=== PATIENT | female | born 1985 | race Caucasian/White ===

== ENCOUNTER 2019-04-03 19:27 | Observation (INO) | payer BC ==
[2019-04-03] MEDS ORDERED: Famotidine 20 MG/2 ML SDV IVPUSH ONE (19:32)
--- NOTE | 2019-04-03 19:32 | EDM.PDOC ---
ED HPI GENERAL MEDICAL PROBLEM - General Chief Complaint: Headache Stated Complaint: Headache Lethargy Time Seen by Provider: 04/03/19 19:27 Source of Information: Reports: Patient, EMS, Family (Mother and sister, Nay) , Old Records ([facility] EMR. No paper hospital chart available.). Denies: EMS Notes Reviewed (Not available at time of dictation) History Limitations: Reports: Altered Mental Status - History of Present Illness INITIAL COMMENTS - FREE TEXT/NARRATIVE: Patient was brought to the emergency room via ambulance with outsole scheduler accompaniment secondary to recurrent syncopal episodes and sedation possibly secondary to migraine equivalent and/or newly diagnosed seizure. Note that the patient had a 10/10 diffuse migraine headache earlier this morning mostly in the frontal region. She was able to eat well at noon and supper. Patient tried "cracking her back" at about 10:50 hours with sudden onset secondary to syncopal episodes 3 each lasting for about 5 seconds with no history of seizure activity, fall, injury, etc., however significant subsequent sedation, which was also present at time of arrival of the paramedics on the scene. They could only alert the patient by means of a sternal rub. Patient did have some urinary incontinence with the above episodes, however she does have a chronic history of urinary incontinence as below. Patient did take her morning medications including narcotics, etc. with Flexeril also taken at 14:00 hours this afternoon for her migraine. The patient denies any chest pain/pressure, heart flutter, dizziness, orthopnea, diaphoresis, paresthesias, recent decreased exercise tolerance, or any other anginal-type symptoms. No recent history of abdominal pain, heartburn, nausea, diarrhea, melena, gross hematochezia, or any food intolerance, including fatty foods, etc. with normal bowel movement earlier today. She denies any gross hematuria, colic, or other UTI symptoms. The patient also denies any recent fever, cough, wheezing, dyspnea , etc.. Onset: Today, Sudden Onset Date: 04/03/19 Onset Time: 18:50 Duration: Constant, Improving Location: Reports: Head. Denies: Face, Neck, Chest, Abdomen, Back, Pelvis, Upper Extremity, Left, Upper Extremity, Right, Lower Extremity, Left, Radiates to Quality: Reports: Same as Previous Episode, Throbbing Severity: Severe Improves with: Reports: None Worsens with: Reports: None Context: Reports: Other (As above). Denies: Sick Contact, Trauma Associated Symptoms: Reports: Confusion (Postictal sedation as above), Headaches , Syncope. Denies: Chest Pain, Cough, Diaphoresis, Fever/Chills, Loss of Appetite, Nausea/Vomiting, Seizure, Shortness of Breath, Weakness Treatments CONSERVATION OFFICER: Reports: IV/IO, Other Medication(s) (As above) Bilateral Frontal Headache Pain Score (Numeric/FACES): 7 - Related Data Allergies Allergy/AdvReac Type Severity Reaction Status Date / Time adhesive tape Allergy Rash Verified 04/03/19 19:32 Home Meds: Home Meds Acetaminophen 2,000 mg PO BID PRN 04/24/18 [History] Albuterol [Proventil HFA] 1 - 2 puff INH Q4H PRN 04/24/18 [History] ClonazePAM [KlonoPIN] 0.5 mg PO DAILY@04/24/18 [History] Docusate Sodium [Colace] 100 mg PO BID PRN 04/24/18 [History] Estradiol [Estrace Vaginal] 1 applic VAG ASDIRECTED 04/24/18 [History] Estradiol [Estrace] 1.5 tab PO DAILY 04/24/18 [History] Fluticasone Propionate [Flonase] 1 spray LEONIDAS DAILY PRN 04/24/18 [History] Gabapentin [Neurontin] 900 mg PO BID@,04/24/18 [History] Loperamide [Imodium] 2 mg PO DAILY PRN 04/24/18 [History] Magnesium Oxide [Magnesium] 500 mg PO DAILY 04/24/18 [History] Modafinil [Provigil] 100 - 200 mg PO DAILY PRN 04/24/18 [History] Pantoprazole [ProTONIX] 20 mg PO DAILY PRN 04/24/18 [History] Propranolol [Propranolol CR 24 Hr] 180 mg PO DAILY 04/24/18 [History] Rizatriptan Benzoate [Rizatriptan] 10 mg PO ASDIRECTED PRN 04/24/18 [History] oxyCODONE 5 - 10 mg PO Q4H PRN 04/24/18 [History] Adapalene 1 applic TOP BEDTIME 04/03/19 [History] Armodafinil [Nuvigil] 1 tab PO DAILY 04/03/19 [History] Clindamycin/Niacinamide [Clindamycin 1%-Niacinamide 4%] 1 applic TOP BID [History] ClonazePAM [KlonoPIN] 0.5 mg PO BEDTIME PRN 04/03/19 [History] Cyclobenzaprine [Flexeril] 1 tab PO TID PRN 04/03/19 [History] Diclofenac Sodium [Voltaren] 1 tab PO BID 04/03/19 [History] Doxycycline [Vibramycin] 1 tab PO BID 04/03/19 [History] Gabapentin [Neurontin] 300 mg PO BEDTIME PRN 04/03/19 [History] Hydrocodone/Acetaminophen [[place] 5-325 Tablet] 1 - 2 tab PO Q4HR PRN 04/03/19 [ History] Lidocaine 5% [Lidoderm 5%] 1 patch TOP DAILY 04/03/19 [History] Non-Formulary Medication [NF Drug] 2 cap PO BID 04/03/19 [History] Ondansetron [Zofran] 0.5 tab PO Q12HR PRN 04/03/19 [History] hydrOXYzine HCl [Hydroxyzine HCl] 1 tab PO Q8HR PRN 04/03/19 [History] Past Medical History HEENT History: Reports: Allergic Rhinitis, Otitis Media, Other (See Below). Denies: Hard of Hearing, Impaired Vision, Retinal Detachment, Sinusitis Other HEENT History: Recurrent otitis media with possible mild bilateral secondary hearing loss. Nasal fracture. Cardiovascular History: Reports: None, Other (See Below). Denies: Afib, Aneurysm, Arrhythmia, Blood Clots/VTE/DVT, CAD, Heart Failure, Heart Murmur, High Cholesterol, Hypertension, MS, PVD, Syncope Other Cardiovascular History: Patient does not know her cholesterol status. Respiratory History: Reports: Asthma, Bronchitis, Recurrent, Intubation, Previous, Other (See Below). Denies: COPD, Intubation, Difficult, PE, Pneumothorax, Sleep Apnea, TB Other Respiratory History: Benign 2 cm left left lower pulmonary nodule by CT scan. Gastrointestinal History: Reports: Cholelithiasis, Chronic Constipation, Chronic Diarrhea, GERD, Irritable Bowel Syndrome, Other (See Below). Denies: Bowel Obstruction, Celiac Disease, Fecal Incontinence, Gastritis, GI Bleed, Hepatitis, Inflammatory Bowel Disease, Jaundice, Pancreatitis, PUD Other Gastrointestinal History: Dysfunctional gallbladder requiring surgery as below. Genitourinary History: Reports: Renal Calculus, Urinary Incontinence, UTI, Recurrent, Other (See Below). Denies: Acute Renal Failure, Chronic Renal Insuffiency, STD Other Genitourinary History: Chronic interstitial cysitis with recurrent UTIs and secondary urinary incontinence. Right-sided urolithiasis in about 2014 with spontaneous passage. CUSTOMS AND BORDER PROTECTION OFFICER History: Reports: Endometriosis. Denies: Dysfunctional Uterine Bleeding , Fibroids, Polycystic Ovaries, : 0 LMP (Approximate): Other (See Below) Other CUSTOMS AND BORDER PROTECTION OFFICER History: Surgical menopause as below secondary to endometriosis. Musculoskeletal History: Reports: Arthritis, Back Pain, Chronic, Fracture, Neck Pain, Chronic, Osteoarthritis, Other (See Below). Denies: Amputation, Fibromyalgia, Gout, RA, SLE Other Musculoskeletal History: Chronic right shoulder pain and recurrent impingement secondary to torn labrum. Bilateral patellar chondromalacia with multiple surgeries as below. Nasal fracture at about age 17 as above. Left wrist fracture at age 17. Neurological History: Reports: Concussion, Headaches, Chronic, Head Trauma, Migraines, Other (See Below). Denies: Cerebral Aneurysms, CVA, MS, Neuropathy, Diabetic, Neuropathy, Peripheral, Parkinson's, Seizure, TIA, Vertigo Other Neuro History: Restless leg syndrome. Concussion at about age 18. Psychiatric History: Reports: Addiction, Anxiety, Depression, Other (See Below) . Denies: Abuse, Victim of, ADD, ADHD, Psych Hospitalization(s), Suicide Attempt, Suicidal Ideation Other Psychiatric History: Narcotic use/abuse with history of multiple overdoses in the past. hyperinsomnia. Endocrine/Metabolic History: Reports: Obesity/BMI 30+. Denies: Diabetes, Type I , Diabetes, Type II, Diabetes Mellitus, Type 3c, Hypothyroidism, IDDM Hematologic History: Reports: Anemia. Denies: Blood Transfusion(s), Iron Deficiency Immunologic History: Reports: None. Denies: AIDS, HIV, SLE Oncologic (Cancer) History: Reports: None. Denies: Basal Cell Carcinoma, Breast , Cervix, Hodgkin's Lymphoma, Leukemia, Malignant Melanoma, Non-Hodgkin's Lymphoma, Ovarian, Squamous Cell Carcinoma, Uterine Dermatologic History: Reports: Other (See Below). Denies: Eczema, Psoriasis Other Dermatologic History: Rosacea - Infectious Disease History Infectious Disease History: Reports: C-Difficile, Chicken Pox. Denies: Measles , Meningitis, Mononucleosis, MRSA, Mumps, Rheumatic Fever, Rubella, Scarlet Fever, Shingles, VRE - Past Surgical History HEENT Surgical History: Reports: Adenoidectomy, Myringotomy w Tube(s), Naso- Sinus Surgery, Oral Surgery, Tonsillectomy, Other (See Below). Denies: Eye Surgery, Laser Surgery, LASIK Other HEENT Surgeries/Procedures: Closed nasal fracture reduction at age 17. Bilateral PE tubes in about 2013 with subsequent removal. Tonsillectomy and adenoidectomy at age 13. [place] teeth extraction 4 at about age 14. Cardiovascular Surgical History: Reports: None. Denies: Varicose Respiratory Surgical History: Reports: None. Denies: Thoracentesis GI Surgical History: Reports: Cholecystectomy, Other (See Below). Denies: Appendectomy, Colonoscopy, EGD, Hernia, Abdominal, Hernia, Inguinal, Hernia Repair/Other Other GI Surgeries/Procedures: Laparoscopic cholecystectomy secondary to dysfunctional gallbladder on 02/04/16. Female Surgical History: Reports: Cystoscopy, Endometrial Ablation, Hysterectomy, Oophorectomy, Salpingo-Oophorectomy, Other (See Below). Denies: Breast Biopsy, Breast Reconstruction, D&C, Tubal Ligation Other Female Surgeries/Procedures: Bladder inter-stim and tacking of bladder to left abd wall secondary to urinary continence initially in 2014 and then in 2016 laparoscopic hysterectomy on 03/20/14 secondary to endometriosis. Cystoscopies on 12/17/15 and 05/21/14. Cystoscopy with concomitant hysteroscopy and endometrial ablation in February 2013. Laparoscopic abdominal/pelvic exploratory surgeries 6 secondary to endometriosis last in October 2011. Endocrine Surgical History: Reports: None. Denies: Thyroid Biopsy Neurological Surgical History: Denies: C-Spine, Discectomy, Laminectomy, Lumbar Spine, Sacral Spine, Spinal Fusion, Thoracic Spine, Vertebroplasty Musculoskeletal Surgical History: Reports: Arthroscopic Knee, Arthroscopic Procedure, Joint Replacement, Knee Replacement, Shoulder Surgery, Other (See Below). Denies: Carpal Tunnel, Ganglion Cyst, ORIF Other Musculoskeletal Surgeries/Procedures:: Right quadriceps repair and excision of right patellar bone spur on 01/08/19. Laparoscopic right shoulder surgery in 2004 and in 2007. Unicompartmental autoplasty of the right knee on 08/06/15 and at the left knee on 08/23/16. Total knee arthroplasty on 04/17/18. Arthroscopic right chondroplasty on 12/12/17 with left-sided chondroplasty on 01/21. Bilateral knee chondroplasty on 05/06/15 with right tibial hardware removal at that time. Repeat bilateral knee arthroscopic chondroplasty on . - Past Imaging History Past Imaging History: Reports: CAT Scan (CT of the abdomen and pelvis on .), HIDA Scan (Positive on 12/27/15 with ejection fraction of only 24%.), Ultrasound (Ultrasound of the Right Shoulder on 01/31/19. Gallbladder Ultrasound on 12/01/15 and 11/23/15.) Social & Family History - Family History HEENT: Reports: Macular Degeneration, Other (See Below). Denies: Glaucoma, Retinal Detachment Other HEENT Family History: Maternal grandfather with macular degeneration. Cardiac: Reports: High Cholesterol, Hypertension, Other (See Below). Denies: Afib, Aneurysm, Arrhythmia, Blood Clots/VTE/DVT, CAD, Cardiomyopathy, Heart Failure, Heart Murmur, MS Other Cardiac Family History: Maternal grandmother with hypertension and hyperlipidemia. Respiratory: Reports: None. Denies: Asthma, COPD, PE, Pneumothorax, Sleep Apnea GI: Reports: Cholelithiasis, Irritable Bowel Syndrome, Other (See Below). Denies: Celiac Disease, Colon Polyps, GERD, GI bleed, Inflammatory Bowel Disease , PUD Other GI Family History: Sister with irritable bowel syndrome area to maternal grandfather with cholecystectomy. : Reports: None. Denies: Renal Calculus, Renal Disease/Insufficiency OBGYN: Reports: Endometriosis, Other (See Below). Denies: Recurrent Spontaneous Other OBGYN Family History: Sister with endometriosis. Musculoskeletal: Reports: None. Denies: Gout, RA, SLE Neurological: Reports: Alzheimers Disease, Dementia, Other (See Below). Denies : CVA, Migraines, MS, Parkinson's, Seizure, TIA Other Neurological Family History: Maternal grandmother with organic brain syndrome. Psychiatric: Reports: None. Denies: Abuse, Victim of, ADD, ADHD, Anxiety, Depression, Psych Hospitalization(s), PTSD, Suicide Attempt Endocrine/Metabolic: Denies: Diabetes, Gestational, Diabetes, Type I, Diabetes, type II, Diabetes Mellitus, Type 3c, Hypothyroidism, IDDM Hematologic: Reports: None. Denies: Anemia, SLE Immunologic: Reports: None. Denies: AIDS, HIV, SLE Dermatologic: Reports: None. Denies: Eczema, Psoriasis Oncologic: Reports: None. Denies: Breast, Cervix, Colon, Hodgkin's Lymphoma, Leukemia, Lymphoma, Non-Hodgkin's Lymphoma, Skin, Uterine - Tobacco Use Smoking Status *Q: Never Smoker Tobacco Use Within Last Twelve Months: No Used Tobacco, but Quit: No Smoking Cessation Information Provided To Patient: No Second Hand Smoke Exposure: No Second Hand Smoke Education Provided: No - Caffeine Use Caffeine Use: Reports: Coffee (One cup per day). Denies: Energy Drinks, Soda, Tea - Alcohol Use Alcohol Use History: Yes Days Per Week of Alcohol Use: 0 Number of Drinks Per Day: 2 Number of Drinks Per Day Comment: Usually mixed drinks about every 23 months. No previous DWIs, problems with alcohol abuse, etc. Total Drinks Per Week: 0 Alcohol Use in Last Twelve Months: Yes - Recreational Drug Use Recreational Drug Use: No Drug Use in Last 12 Months: No Recreational Drug Type: Denies: Amphetamines (Speed), Cocaine, Heroin, Inhalants (Glues, Solvents, Aerosols), LSD (Acid), Marijuana/Hashish, Methamphetamine, Oxycodone - Living Situation & Occupation Living situation: Reports: Single, Alone Occupation: Employed ([employer]) ED ROS GENERAL - Review of Systems Review Of Systems: Comprehensive ROS is negative, except as noted in HPI. ED EXAM, NEURO - Physical Exam Exam: See Below Exam Limited By: Altered Mental Status (Improving sedation) General Appearance: No Apparent Distress, Lethargic (Mild) Eye Exam: Bilateral Eye: EOMI, Normal Fundi, Normal Inspection (No nystagmus), PERRL Ears: Normal External Exam, Normal Canal, Hearing Grossly Normal, Normal TMs Nose: Normal Inspection, Normal Mucosa, No Blood Throat/Mouth: Normal Inspection, Normal Lips, Normal Teeth, Normal Gums, Normal Oropharynx, Normal Voice, No Airway Compromise, Other (No evidence of lingular injury). No: Dysphagia, Perioral Cyanosis Head Exam: Atraumatic, Normocephalic. No: Facial Swelling, Facial Tenderness, Sinus Tenderness Neck: Normal Inspection, Supple, Non-Tender, Full Range of Motion. No: Carotid Bruit, Lymphadenopathy (L), Lymphadenopathy (R), Thyromegaly Respiratory/Chest: No Respiratory Distress, Lungs Clear, Normal Breath Sounds, No Accessory Muscle Use, Chest Non-Tender. No: Pleural Rub, Retractions Cardiovascular: Normal Peripheral Pulses, Regular Rate, Rhythm, No Edema, No Gallop, No JVD, No Murmur, No Rub. No: Gallop/S3, Gallop/S4, Friction Rub GI/Abdominal: Normal Bowel Sounds, Soft, Non-Tender, No Organomegaly, No Distention, No Abnormal Bruit, No Mass, Pelvis Stable, Other (obese). No: Guarding (Female) Exam: Deferred Rectal (Female) Exam: Deferred Neurological: Alert (After initial brief sedation), Normal Dorsiflexion, CN II- XII Intact, Normal Plantar Flexion, Normal Gait, Normal Reflexes (Negative Babinski's, finger to nose, and pronator rotation tests. No evidence of facial paresis, tongue deviation, orthostasis, etc.. Excellent reverse thought processes.), No Motor/Sensory Deficits, Oriented x 3 Back Exam: Normal Inspection, Full Range of Motion. No: CVA Tenderness (L), CVA Tenderness (R), Muscle Spasm Extremities: Non-Tender, No Pedal Edema, Normal Capillary Refill, Limited Range of Motion (Secondary to chronic right shoulder pain). No: Ngozi's Sign Psychiatric: Anxious (Mild to moderate), Depressed Mood (Borderline) Skin Exam: Warm, Dry, Intact, Normal Color, No Rash. No: Diaphoretic, Ecchymosis, Wound/Incision EKG INTERPRETATION EKG Date: 04/03/19 Time: 19:44 Rhythm: NSR Rate (Beats/Min): 65 [place]: Normal (Cardiac axis) P-Wave: Present (Diffuse biphasic P waves with extreme poor R-wave progression in the anterior leads) QRS: RBBB (0.10 seconds representing a borderline incomplete right bundle branch block) ST-T: Other (T-wave inversion in leads 3, V1V3 and possibly aVF) QT: Normal [place]/PQ Interval: 0.17 seconds Comparison: NA - No Prior EKG EKG Interpretation Comments: 1. Possible anteroinferior cardiac ischemia 2. Left atrial enlargement 3. Incomplete right bundle branch block. Course - Vital Signs Last Recorded V/S: Last Vital Signs Temp 36.1 C 04/03/19 21:25 Pulse 62 04/03/19 21:25 Resp 14 04/03/19 21:25 BP 119/69 04/03/19 21:25 Pulse Ox 99 04/03/19 21:25 Vital Signs - 24 hr 04/03/19 04/03/19 04/03/19 19:30 20:00 20:15 Temperature [ 36.3 C Temporal] Pulse, 76 66 62 Peripheral [ Pulse Oximetry] Respiratory 14 16 14 Rate Blood Pressure 121/88 128/71 123/68 [Left Upper Arm ] O2 Sat by Pulse 96 97 98 Oximetry 04/03/19 04/03/19 04/03/19 20:30 20:53 21:05 Temperature [ 35.9 C Temporal] Pulse, 64 65 61 Peripheral [ Pulse Oximetry] Respiratory 14 14 14 Rate Blood Pressure 115/67 126/68 125/66 [Left Upper Arm ] O2 Sat by Pulse 98 99 99 Oximetry - Orders/Labs/Meds Orders: Active Orders 24 hr Category Date Time Status Cardiac Monitoring [RC] STAT Care 04/03/19 19:33 Active EKG Documentation Completion [RC] ASDIRECTED Care 04/03/19 19:33 Active Oxygen Therapy, ED [RC] PRN Care 04/03/19 19:33 Active Peripheral IV Care [RC] . DIRECTED Care 04/03/19 19:33 Active Pulse Oximetry [RC] CONTINUOUS Care 04/03/19 19:33 Active Up With Assistance [RC] ASDIRECTED Care 04/03/19 19:33 Active Vital Signs [RC] PFP Care 04/03/19 19:33 Active Nothing per Oral Now Diet [DIET] Diet 04/03/19 Breakfast Active Chest 1V Frontal [CR] Stat Exams 04/03/19 19:33 Taken Head wo Cont [CT] Stat Exams 04/03/19 19:33 Taken CULTURE URINE [RM] Routine Lab 04/03/19 20:45 Received PROLACTIN [REF] Stat Lab 04/03/19 19:45 Received Sodium Chloride 0.9% [Saline Flush] Med 04/03/19 19:32 Active 10 ml FLUSH ASDIRECTED PRN Obtain Past Medical Record [OM.PC] Stat Oth 04/03/19 19:33 Active Peripheral IV Insertion Adult [OM.PC] Stat Oth 04/03/19 19:33 Ordered Resuscitation Status Stat Resus Stat 04/03/19 19:32 Ordered Medication Orders Sodium Chloride (Saline Flush) 10 ml FLUSH ASDIRECTED PRN PRN Reason: Keep Vein Open Last Admin: 04/03/19 21:18 Dose: 10 ml Admin: 04/03/19 21:16 Dose: 10 ml Admin: 04/03/19 19:49 Dose: 10 ml Labs: Laboratory Tests 04/03/19 04/03/19 04/03/19 Range/Units 19:45 19:45 19:45 WBC 12.6 H (4.0-10.2) K/uL RBC 3.94 (3.77-5.09) M/uL Hgb 12.7 (11.7-15.5) g/dL Hct 38.6 (34.0-46.0) % MCV 98.0 D (84.0-98.0) fL MCH 32.2 (28.2-33.3) pg MCHC 32.9 (31.7-36.0) g/dL RDW 11.8 (11.2-14.1) % Plt Count 408 H (150-350) K/uL Neut % (Auto) 78.6 (45.0-80.0) % Lymph % (Auto) 14.9 (10.0-50.0) % [place] % (Auto) 6.5 (2.0-14.0) % Eos % (Auto) 0.0 (0.0-5.0) % Baso % (Auto) 0.0 (0.0-2.0) % Neut # (Auto) 9.87 H (1.40-7.00) K/uL Lymph # (Auto) 1.87 (0.50-3.50) K/uL [place] # (Auto) 0.82 (0.00-1.00) K/uL Eos # (Auto) 0.00 (0.00-0.50) K/uL Baso # (Auto) 0.00 (0.00-0.20) K/uL PT 9.9 (9.5-12.0) SEC INR 0.9 APTT 23.8 (21.0-31.3) SEC D-Dimer, Quantitative 473 H (0-400) ng/mL Sodium (136-145) mmol/L Potassium (3.5-5.1) mmol/L Chloride (98-107) mmol/L Carbon Dioxide (21.0-32.0) mmol/L BUN (7-18) mg/dL Creatinine (0.51-1.17) mg/dL Est Cr Clr Drug Dosing Estimated GFR (MDRD) mL/min Glucose (74-106) mg/dL Lactic Acid (0.4-2.0) mmol/L Uric Acid (2.6-7.2) mg/dL Calcium (8.5-10.1) mg/dL Magnesium (1.8-2.4) mg/dL Total Bilirubin (0.2-1.0) mg/dL AST (15-37) U/L ALT (12-78) U/L Alkaline Phosphatase (46-116) IU/L Creatine Kinase (26-308) U/L Creatine Kinase Index (0.0-2.5) % CK-MB (CK-2) (0.00-3.60) ng/mL Troponin I (0.000-0.056) ng/mL NT-Pro-B Natriuret Pep (0-125) pg/mL Total Protein (6.4-8.2) g/dL Albumin (3.4-5.0) g/dL TSH, Ultra Sensitive (0.358-3.740) mIU/mL Specimen Type Urine Color Urine Appearance Urine pH (5.0-9.0) Ur Specific [place] (1.005-1.030) Urine Protein (NEGATIVE) mg/dL Urine Glucose (UA) (NEGATIVE) mg/dL Urine Ketones (NEGATIVE) mg/dL Urine Occult Blood (NEGATIVE) Urine Nitrite (NEGATIVE) Urine Bilirubin (NEGATIVE) Urine Urobilinogen (0.2-1.0) E.U./dL Ur Leukocyte Esterase (NEGATIVE) Urine RBC /HPF Urine WBC /HPF Ur Epithelial Cells /LPF Urine Bacteria (NONE TO FEW) /HPF Urinalysis Comment Urine Opiates Screen (NEGATIVE) Urine Methadone Screen (NEGATIVE) U Acetaminophen Screen (NEGATIVE) Ur Barbiturates Screen (NEGATIVE) Ur Tricyclics Screen (NEGATIVE) Ur Phencyclidine Scrn (NEGATIVE) Ur Amphetamine Screen (NEGATIVE) U Methamphetamines Scrn (NEGATIVE) U Benzodiazepines Scrn (NEGATIVE) U Cocaine Metab Screen (NEGATIVE) U Marijuana (THC) Screen (NEGATIVE) Ethyl Alcohol (0.000-0.080) g/dL 04/03/19 04/03/19 04/03/19 Range/Units 19:45 19:45 20:45 WBC (4.0-10.2) K/uL RBC (3.77-5.09) M/uL Hgb (11.7-15.5) g/dL Hct (34.0-46.0) % MCV (84.0-98.0) fL MCH (28.2-33.3) pg MCHC (31.7-36.0) g/dL RDW (11.2-14.1) % Plt Count (150-350) K/uL Neut % (Auto) (45.0-80.0) % Lymph % (Auto) (10.0-50.0) % [place] % (Auto) (2.0-14.0) % Eos % (Auto) (0.0-5.0) % Baso % (Auto) (0.0-2.0) % Neut # (Auto) (1.40-7.00) K/uL Lymph # (Auto) (0.50-3.50) K/uL [place] # (Auto) (0.00-1.00) K/uL Eos # (Auto) (0.00-0.50) K/uL Baso # (Auto) (0.00-0.20) K/uL PT (9.5-12.0) SEC INR APTT (21.0-31.3) SEC D-Dimer, Quantitative (0-400) ng/mL Sodium 140 (136-145) mmol/L Potassium 4.0 (3.5-5.1) mmol/L Chloride 103 (98-107) mmol/L Carbon Dioxide 23.1 (21.0-32.0) mmol/L BUN 25 H (7-18) mg/dL Creatinine 0.95 (0.51-1.17) mg/dL Est Cr Clr Drug Dosing TNP Estimated GFR (MDRD) > 60 mL/min Glucose 117 H (74-106) mg/dL Lactic Acid 1.8 (0.4-2.0) mmol/L Uric Acid 4.9 (2.6-7.2) mg/dL Calcium 8.7 (8.5-10.1) mg/dL Magnesium 2.2 (1.8-2.4) mg/dL Total Bilirubin 0.2 (0.2-1.0) mg/dL AST 23 (15-37) U/L ALT 52 (12-78) U/L Alkaline Phosphatase 112 (46-116) IU/L Creatine Kinase 185 (26-308) U/L Creatine Kinase Index 0.5 (0.0-2.5) % CK-MB (CK-2) 0.90 (0.00-3.60) ng/mL Troponin I 0.000 (0.000-0.056) ng/mL NT-Pro-B Natriuret Pep 291 H (0-125) pg/mL Total Protein 7.5 (6.4-8.2) g/dL Albumin 3.4 (3.4-5.0) g/dL TSH, Ultra Sensitive 1.552 (0.358-3.740) mIU/mL Specimen Type Urincc Urine Color Yellow Urine Appearance Clear Urine pH 6.0 (5.0-9.0) Ur Specific [place] 1.015 (1.005-1.030) Urine Protein Negative (NEGATIVE) mg/dL Urine Glucose (UA) Negative (NEGATIVE) mg/dL Urine Ketones Negative (NEGATIVE) mg/dL Urine Occult Blood Trace-intact H (NEGATIVE) Urine Nitrite Negative (NEGATIVE) Urine Bilirubin Negative (NEGATIVE) Urine Urobilinogen 0.2 (0.2-1.0) E.U./dL Ur Leukocyte Esterase Negative (NEGATIVE) Urine RBC Not seen /HPF Urine WBC Not seen /HPF Ur Epithelial Cells Rare /LPF Urine Bacteria Rare (NONE TO FEW) /HPF Urinalysis Comment Urine Opiates Screen (NEGATIVE) Urine Methadone Screen (NEGATIVE) U Acetaminophen Screen (NEGATIVE) Ur Barbiturates Screen (NEGATIVE) Ur Tricyclics Screen (NEGATIVE) Ur Phencyclidine Scrn (NEGATIVE) Ur Amphetamine Screen (NEGATIVE) U Methamphetamines Scrn (NEGATIVE) U Benzodiazepines Scrn (NEGATIVE) U Cocaine Metab Screen (NEGATIVE) U Marijuana (THC) Screen (NEGATIVE) Ethyl Alcohol 0.001 (0.000-0.080) g/dL 11/28/19 Range/Units 20:45 WBC (4.0-10.2) K/uL RBC (3.77-5.09) M/uL Hgb (11.7-15.5) g/dL Hct (34.0-46.0) % MCV (84.0-98.0) fL MCH (28.2-33.3) pg MCHC (31.7-36.0) g/dL RDW (11.2-14.1) % Plt Count (150-350) K/uL Neut % (Auto) (45.0-80.0) % Lymph % (Auto) (10.0-50.0) % [place] % (Auto) (2.0-14.0) % Eos % (Auto) (0.0-5.0) % Baso % (Auto) (0.0-2.0) % Neut # (Auto) (1.40-7.00) K/uL Lymph # (Auto) (0.50-3.50) K/uL [place] # (Auto) (0.00-1.00) K/uL Eos # (Auto) (0.00-0.50) K/uL Baso # (Auto) (0.00-0.20) K/uL PT (9.5-12.0) SEC INR APTT (21.0-31.3) SEC D-Dimer, Quantitative (0-400) ng/mL Sodium (136-145) mmol/L Potassium (3.5-5.1) mmol/L Chloride (98-107) mmol/L Carbon Dioxide (21.0-32.0) mmol/L BUN (7-18) mg/dL Creatinine (0.51-1.17) mg/dL Est Cr Clr Drug Dosing Estimated GFR (MDRD) mL/min Glucose (74-106) mg/dL Lactic Acid (0.4-2.0) mmol/L Uric Acid (2.6-7.2) mg/dL Calcium (8.5-10.1) mg/dL Magnesium (1.8-2.4) mg/dL Total Bilirubin (0.2-1.0) mg/dL AST (15-37) U/L ALT (12-78) U/L Alkaline Phosphatase (46-116) IU/L Creatine Kinase (26-308) U/L Creatine Kinase Index (0.0-2.5) % CK-MB (CK-2) (0.00-3.60) ng/mL Troponin I (0.000-0.056) ng/mL NT-Pro-B Natriuret Pep (0-125) pg/mL Total Protein (6.4-8.2) g/dL Albumin (3.4-5.0) g/dL TSH, Ultra Sensitive (0.358-3.740) mIU/mL Specimen Type Urine Color Urine Appearance Urine pH (5.0-9.0) Ur Specific [place] (1.005-1.030) Urine Protein (NEGATIVE) mg/dL Urine Glucose (UA) (NEGATIVE) mg/dL Urine Ketones (NEGATIVE) mg/dL Urine Occult Blood (NEGATIVE) Urine Nitrite (NEGATIVE) Urine Bilirubin (NEGATIVE) Urine Urobilinogen (0.2-1.0) E.U./dL Ur Leukocyte Esterase (NEGATIVE) Urine RBC /HPF Urine WBC /HPF Ur Epithelial Cells /LPF Urine Bacteria (NONE TO FEW) /HPF Urinalysis Comment Urine Opiates Screen Negative (NEGATIVE) Urine Methadone Screen Negative (NEGATIVE) U Acetaminophen Screen Positive H (NEGATIVE) Ur Barbiturates Screen Negative (NEGATIVE) Ur Tricyclics Screen Positive H (NEGATIVE) Ur Phencyclidine Scrn Negative (NEGATIVE) Ur Amphetamine Screen Negative (NEGATIVE) U Methamphetamines Scrn Negative (NEGATIVE) U Benzodiazepines Scrn Negative (NEGATIVE) U Cocaine Metab Screen Negative (NEGATIVE) U Marijuana (THC) Screen Negative (NEGATIVE) Ethyl Alcohol (0.000-0.080) g/dL Meds: Medications Generic Name Dose Route Start Last Admin Trade Name Freq PRN Reason Stop Dose Admin Sodium Chloride 10 ml 04/03/19 19:32 04/03/19 21:18 Saline Flush FLUSH 10 ml ASDIRECTED PRN Administration Keep Vein Open Discontinued Medications Generic Name Dose Route Start Last Admin Trade Name Freq PRN Reason Stop Dose Admin Diazepam 2.5 mg 04/03/19 21:04 04/03/19 21:17 Valium IVPUSH 04/03/19 21:05 2.5 mg ONETIME ONE Administration Famotidine 40 mg 04/03/19 19:32 04/03/19 19:48 Pepcid IVPUSH 04/03/19 19:33 40 mg ONETIME ONE Administration Ketorolac Tromethamine 30 mg 04/03/19 21:04 04/03/19 21:15 Toradol IVPUSH 04/03/19 21:05 30 mg ONETIME ONE Administration - Radiology Interpretation Free Text/Narrative:: alarm security or surveillance monitor showed normal sinus rhythm with heart rate in the 60s 70s with no ectopy or arrhythmia Chest x-ray, portable, shows extremely poor inspiratory film with moderately elevated right hemidiaphragm, however no significant cardiomegaly, CHF, pulmonary infiltrates, pneumothorax, etc. Departure - Departure Time of Disposition: 21:30 Disposition: Refer to Observation Condition: Good Clinical Impression: Peptic reflux disease, Incomplete right bundle branch block Syncope Qualifiers: Syncope type: unspecified Qualified Code(s): R55 - Syncope and collapse Migraine headache Qualifiers: Migraine type: without aura Status migrainosus presence: without status migrainosus Intractability: not intractable Qualified Code(s): G43.009 - Migraine without aura, not intractable, without status migrainosus Osteoarthritis Qualifiers: Osteoarthritis location: multiple joints Osteoarthritis type: primary Qualified Code(s): M15.0 - Primary generalized (osteo)arthritis Asthma Qualifiers: Asthma severity: mild Asthma persistence: intermittent Asthma complication type : uncomplicated Qualified Code(s): J45.20 - Mild intermittent asthma, uncomplicated - Discharge Information *PRESCRIPTION DRUG MONITORING PROGRAM REVIEWED*: Not Applicable *COPY OF PRESCRIPTION DRUG MONITORING REPORT IN PATIENT INA: Not Applicable - Problem List & Annotations (1) Syncope SNOMED Code(s): 986237002 Code(s): R55 - SYNCOPE AND COLLAPSE Status: Acute Priority: High Current Visit: Yes Onset Date: 04/03/19 Annotation/Comment:: Recurrent syncopal episodes as above suspicious for probable pulmonary leak diagnosed seizure disorder. Postictal sedation, which was almost completely resolved at time of her my arrival to the emergency room. Note that I was present in the emergency room with the ambulance came to this facility. Normal neurological exam at time of admission. Continue neurological checks with vitals. Outpatient workup including EEG, neurology consultation, etc. recommended. Note mild leukocytosis likely secondary to stress reaction with no fever or signs of infection. Low-dose IV diazepam was also given for seizure prophylaxis and treatment of her migraine headache. Qualifiers: Syncope type: unspecified Qualified Code(s): R55 - Syncope and collapse (2) Incomplete right bundle branch block SNOMED Code(s): 397903869 Code(s): I45.10 - UNSPECIFIED RIGHT BUNDLE-BRANCH BLOCK Status: Acute Priority: High Current Visit: Yes Onset Date: 04/03/19 Annotation/Comment: : Incomplete right bundle branch block with no chest pain or anginal type symptoms. Note some possible anteroinferior ischemia by EKG, however normal cardiac enzymes. EKG changes likely secondary to probable seizure as above. Cardiac enzymes and EKG in the a.m. Chest pain protocol was not initiated in the emergency room secondary to absence of anginal symptoms. (3) Migraine headache SNOMED Code(s): 63171108 Code(s): G43.909 - MIGRAINE, UNSP, NOT INTRACTABLE, WITHOUT STATUS MIGRAINOSUS Status: Acute Priority: High Current Visit: Yes Onset Date: 04/03/19 Annotation/Comment:: As above. Possible migraine equivalent. IV Toradol given in the emergency room. Qualifiers: Migraine type: without aura Status migrainosus presence: without status migrainosus Intractability: not intractable Qualified Code(s): G43.009 - Migraine without aura, not intractable, without status migrainosus (4) Asthma SNOMED Code(s): 630640600 Code(s): J45.909 - UNSPECIFIED ASTHMA, UNCOMPLICATED Status: Chronic Priority: Medium Current Visit: Yes Annotation/Comment:: No recent fever or bronchitic type symptoms. Qualifiers: Asthma severity: mild Asthma persistence: intermittent Asthma complication type: uncomplicated Qualified Code(s): J45.20 - Mild intermittent asthma, uncomplicated (5) Osteoarthritis SNOMED Code(s): 514561782 Code(s): M19.90 - UNSPECIFIED OSTEOARTHRITIS, UNSPECIFIED SITE Status: Chronic Priority: Medium Current Visit: Yes Annotation/Comment:: Stable by history, including chronic right shoulder pain, with no history of injury, fall, from syncopal episodes as above. Qualifiers: Osteoarthritis location: multiple joints Osteoarthritis type: primary Qualified Code(s): M15.0 - Primary generalized (osteo)arthritis (6) Peptic reflux disease SNOMED Code(s): 357023285 Code(s): K21.9 - GASTRO-ESOPHAGEAL REFLUX DISEASE WITHOUT ESOPHAGITIS Status: Chronic Priority: Medium Current Visit: Yes Annotation/Comment:: High-dose IV Pepcid given in the emergency room. (7) Mixed anxiety depressive disorder SNOMED Code(s): 643239978 Code(s): F41.8 - OTHER SPECIFIED ANXIETY DISORDERS Status: Chronic Priority: High Current Visit: Yes Annotation/Comment:: No evidence of chronic overdose today, however note previous multiple unintentional drug overdoses per family history. Narcan not given by the outsole scheduler with Romazicon not available in the ambulance. She would benefit from drug rehabilitation program and continue to observe her anxiety and depression closely by her regular providers. - Problem List Review Problem List Initiated/Reviewed/Updated: Yes - My Orders Last 24 Hours: My Active Orders 04/03/19 19:32 Sodium Chloride 0.9% [Saline Flush] 10 ml FLUSH ASDIRECTED PRN Resuscitation Status Stat 04/03/19 19:33 Cardiac Monitoring [RC] STAT EKG Documentation Completion [RC] ASDIRECTED Oxygen Therapy, ED [RC] PRN Peripheral IV Care [RC] . DIRECTED Pulse Oximetry [RC] CONTINUOUS Up With Assistance [RC] ASDIRECTED Vital Signs [RC] PFP Chest 1V Frontal [CR] Stat Head wo Cont [CT] Stat Obtain Past Medical Record [OM.PC] Stat Peripheral IV Insertion Adult [OM.PC] Stat 04/03/19 19:45 PROLACTIN [REF] Stat 04/03/19 20:45 CULTURE URINE [RM] Routine 04/03/19 Breakfast Nothing per Oral Now Diet [DIET] - Assessment/Plan Admission H&P: Please use this note as an admission H&P Last 24 Hours: My Active Orders 04/03/19 19:32 Sodium Chloride 0.9% [Saline Flush] 10 ml FLUSH ASDIRECTED PRN Resuscitation Status Stat 04/03/19 19:33 Cardiac Monitoring [RC] STAT EKG Documentation Completion [RC] ASDIRECTED Oxygen Therapy, ED [RC] PRN Peripheral IV Care [RC] . DIRECTED Pulse Oximetry [RC] CONTINUOUS Up With Assistance [RC] ASDIRECTED Vital Signs [RC] PFP Chest 1V Frontal [CR] Stat Head wo Cont [CT] Stat Obtain Past Medical Record [OM.PC] Stat Peripheral IV Insertion Adult [OM.PC] Stat 04/03/19 19:45 PROLACTIN [REF] Stat 04/03/19 20:45 CULTURE URINE [RM] Routine 04/03/19 Breakfast Nothing per Oral Now Diet [DIET] Assessment:: As above Plan: As above. Extensive precautions were given to the patient and her family, who are in agreement with the treatment plan. The patient's condition is stable enough for observation status and general supervision.
[2019-04-03] MEDS: Sodium Chloride 0.9% 10 ML Syringe FLUSH PRN ×3 (19:49→21:18)
[2019-04-03 20:30] LABS: CHLORIDE,CL 103 mmol/L (98-107); SODIUM,NA 140 mmol/L (136-145)
[2019-04-03] MEDS ORDERED: Ketorolac 30 MG/ML SDV IVPUSH ONE (21:04)
[2019-04-03 21:09] LABS: BARBITURATE SCREEN,URINE NEGATIVE (NEGATIVE); BENZODIAZEPINES SCREEN,URINE NEGATIVE (NEGATIVE); TCA SCREEN,URINE POSITIVE (NEGATIVE); THC SCREEN,URINE 50 NG/ML NEGATIVE (NEGATIVE)
[2019-04-03] MEDS ORDERED: Gabapentin 300 MG Cap PO PRN (21:44)
[2019-04-03] MEDS ORDERED: hydrOXYzine HCl 25 MG Tab PO PRN (21:44)
[2019-04-03] MEDS ORDERED: Sodium Chloride 0.9% 10 ML Syringe FLUSH PRN (21:46)
[2019-04-03] MEDS: Acetaminophen 325 MG Tab PO PRN (22:30)
[2019-04-04] MEDS: Sodium Chloride 0.9% 10 ML Syringe FLUSH PRN ×2 (03:42→11:45)
[2019-04-04] MEDS: Ketorolac 15 MG/ML SDV IVPUSH PRN ×3 (03:42→16:08)
[2019-04-04] MEDS: Temazepam 15 MG Cap PO PRN ×2 (04:12→19:35)
[2019-04-04] MEDS: Magnesium Oxide 400 MG Tab PO SCH (07:40)
[2019-04-04] MEDS: Propranolol 60 MG Cap.ER PO SCH (07:41)
[2019-04-04] MEDS: Doxycycline 100 MG Cap PO SCH ×2 (07:41→17:35)
[2019-04-04 07:56] LABS: HEMOGLOBIN A1C 5.3 % (4.3-5.7)
[2019-04-04] MEDS ORDERED: ARMODAFINIL PO SCH (08:00)
[2019-04-04] MEDS ORDERED: CLINDAMYCIN TOP SCH (08:00)
[2019-04-04] MEDS ORDERED: NIACINAMIDE TOP SCH (08:00)
[2019-04-04] MEDS ORDERED: [UNRECOGNIZED DRUG - OTHER] TOP SCH (08:00)
[2019-04-04] MEDS ORDERED: Lidocaine 5% 700 MG Patch TOP SCH (08:00)
[2019-04-04 08:18] LABS: CHLORIDE,CL 104 mmol/L (98-107); SODIUM,NA 139 mmol/L (136-145)
[2019-04-04] MEDS: Lidocaine 4% 1 each Patch TOP SCH (10:04)
--- NOTE | 2019-04-04 10:53 | PCM.PN ---
- General Info Date of Service: 04/04/19 Admission Dx/Problem (Free Text): 1. Syncope 2. Migraine headache Functional Status: Reports: Pain Controlled, Tolerating Diet, Ambulating, Urinating. Denies: New Symptoms, Incentive Spirometry Pain Score: 8 (System occasional breakthrough migraine headache) - Review of Systems General: Reports: No Symptoms, Other (Confusion resolved with normal baseline). Denies: Fever, Weakness, Fatigue, Malaise, Chills, Night Sweats, Appetite ( Adequate) HEENT: Reports: Headaches. Denies: Dysphasia, Ear Pain, Eye Pain, Post Nasal Drip, Sinus Congestion, Sore Throat, Rhinitis, Visual Changes Pulmonary: Reports: No Symptoms. Denies: Shortness of Breath, Pleuritic Chest Pain, Cough, Sputum, Hemoptysis, Wheezing Cardiovascular: Reports: Edema (Mild dependent). Denies: Chest Pain, Palpitations, Dyspnea on Exertion, Orthopnea, Lightheadedness Gastrointestinal: Reports: No Symptoms. Denies: Abdominal Pain, Constipation, Decreased Appetite, Diarrhea, Difficulty Swallowing, Flatus, Hematochezia, Melena, Nausea Genitourinary: Reports: Incontinence (Stable chronic). Denies: Dysuria, Frequency, Burning, Urgency, Hematuria, Retention, Flank Pain Musculoskeletal: Reports: Shoulder Pain (Stable right shoulder). Denies: Neck Pain, Arm Pain, Hand Pain, Back Pain, Leg Pain, Joint Swelling Skin: Reports: No Symptoms. Denies: Diaphoresis, Bruising, Pruritis, Rash Neurological: Reports: Headache. Denies: Confusion (Resolved as above), Numbness, Paresthesia, Seizure, Syncope, Tingling, Trouble Speaking, Difficulty Walking, Weakness, Change in Speech, Gait Disturbance Psychiatric: Reports: Depression (Mild to moderate), Anxiety (Mild to moderate) , Cravings. Denies: Confusion, Agitation, Hallucinations - Patient Data Vitals - Most Recent: Last Vital Signs Temp 36.4 C 04/04/19 08:00 Pulse 50 L 04/04/19 08:00 Resp 16 04/04/19 08:00 BP 128/83 04/04/19 08:00 Pulse Ox 98 04/04/19 08:00 Vital Signs - 24 hr 04/03/19 04/03/19 04/03/19 19:30 20:00 20:15 Temperature [ Oral] Temperature [ 36.3 C Temporal] Pulse, 76 66 62 Peripheral [ Pulse Oximetry] Respiratory 14 16 14 Rate Blood Pressure 121/88 128/71 123/68 [Left Upper Arm ] O2 Sat by Pulse 96 97 98 Oximetry 04/03/19 04/03/19 04/03/19 20:30 20:53 21:05 Temperature [ Oral] Temperature [ 35.9 C Temporal] Pulse, 64 65 61 Peripheral [ Pulse Oximetry] Respiratory 14 14 14 Rate Blood Pressure 115/67 126/68 125/66 [Left Upper Arm ] O2 Sat by Pulse 98 99 99 Oximetry 04/03/19 04/03/19 04/03/19 21:25 21:39 21:46 Temperature [ Oral] Temperature [ 36.1 C 36.1 C Temporal] Pulse, 62 61 Peripheral [ Pulse Oximetry] Respiratory 14 14 Rate Blood Pressure 119/69 119/69 [Left Upper Arm ] O2 Sat by Pulse 99 99 99 Oximetry 04/04/19 04/04/19 04/04/19 00:00 02:00 04:00 Temperature [ 36.9 C 36.7 C 36.7 C Oral] Temperature [ Temporal] Pulse, 58 L 58 L 49 L Peripheral [ Pulse Oximetry] Respiratory 16 16 14 Rate Blood Pressure 114/67 118/58 L 130/79 [Left Upper Arm ] O2 Sat by Pulse 100 100 99 Oximetry 04/04/19 08:00 Temperature [ 36.4 C Oral] Temperature [ Temporal] Pulse, 50 L Peripheral [ Pulse Oximetry] Respiratory 16 Rate Blood Pressure 128/83 [Left Upper Arm ] O2 Sat by Pulse 98 Oximetry Weight - Most Recent: 136.35 kg I&O - Last 24 Hours: Intake & Output 04/03/19 04/04/19 04/04/19 22:59 06:59 14:59 Output Total 100 300 Balance -100 -300 Imaging Impressions - Last 24 Hours: telemetry monitor shows normal sinus rhythm in the 50s to 70s no ectopy or arrhythmia Lab Results Last 24 Hours: Laboratory Results - last 24 hr 04/03/19 04/03/19 04/03/19 Range/Units 19:45 19:45 19:45 WBC 12.6 H (4.0-10.2) K/uL RBC 3.94 (3.77-5.09) M/uL Hgb 12.7 (11.7-15.5) g/dL Hct 38.6 (34.0-46.0) % MCV 98.0 D (84.0-98.0) fL MCH 32.2 (28.2-33.3) pg MCHC 32.9 (31.7-36.0) g/dL RDW 11.8 (11.2-14.1) % Plt Count 408 H (150-350) K/uL Neut % (Auto) 78.6 (45.0-80.0) % Lymph % (Auto) 14.9 (10.0-50.0) % [place] % (Auto) 6.5 (2.0-14.0) % Eos % (Auto) 0.0 (0.0-5.0) % Baso % (Auto) 0.0 (0.0-2.0) % Neut # (Auto) 9.87 H (1.40-7.00) K/uL Lymph # (Auto) 1.87 (0.50-3.50) K/uL [place] # (Auto) 0.82 (0.00-1.00) K/uL Eos # (Auto) 0.00 (0.00-0.50) K/uL Baso # (Auto) 0.00 (0.00-0.20) K/uL PT 9.9 (9.5-12.0) SEC INR 0.9 APTT 23.8 (21.0-31.3) SEC D-Dimer, Quantitative 473 H (0-400) ng/mL Sodium (136-145) mmol/L Potassium (3.5-5.1) mmol/L Chloride (98-107) mmol/L Carbon Dioxide (21.0-32.0) mmol/L BUN (7-18) mg/dL Creatinine (0.51-1.17) mg/dL Est Cr Clr Drug Dosing Estimated GFR (MDRD) mL/min Glucose (74-106) mg/dL Hemoglobin A1c (4.3-5.7) % Lactic Acid (0.4-2.0) mmol/L Uric Acid (2.6-7.2) mg/dL Calcium (8.5-10.1) mg/dL Magnesium (1.8-2.4) mg/dL Total Bilirubin (0.2-1.0) mg/dL AST (15-37) U/L ALT (12-78) U/L Alkaline Phosphatase (46-116) IU/L Creatine Kinase (26-308) U/L Creatine Kinase Index (0.0-2.5) % CK-MB (CK-2) (0.00-3.60) ng/mL Troponin I (0.000-0.056) ng/mL NT-Pro-B Natriuret Pep (0-125) pg/mL Total Protein (6.4-8.2) g/dL Albumin (3.4-5.0) g/dL Triglycerides (30-150) mg/dL Cholesterol (100-200) mg/dL LDL Cholesterol, Calc (0-100) mg/dL HDL Cholesterol (40-60) mg/dL TSH, Ultra Sensitive (0.358-3.740) mIU/mL Specimen Type Urine Color Urine Appearance Urine pH (5.0-9.0) Ur Specific [place] (1.005-1.030) Urine Protein (NEGATIVE) mg/dL Urine Glucose (UA) (NEGATIVE) mg/dL Urine Ketones (NEGATIVE) mg/dL Urine Occult Blood (NEGATIVE) Urine Nitrite (NEGATIVE) Urine Bilirubin (NEGATIVE) Urine Urobilinogen (0.2-1.0) E.U./dL Ur Leukocyte Esterase (NEGATIVE) Urine RBC /HPF Urine WBC /HPF Ur Epithelial Cells /LPF Urine Bacteria (NONE TO FEW) /HPF Urinalysis Comment Urine Opiates Screen (NEGATIVE) Urine Methadone Screen (NEGATIVE) U Acetaminophen Screen (NEGATIVE) Ur Barbiturates Screen (NEGATIVE) Ur Tricyclics Screen (NEGATIVE) Ur Phencyclidine Scrn (NEGATIVE) Ur Amphetamine Screen (NEGATIVE) U Methamphetamines Scrn (NEGATIVE) U Benzodiazepines Scrn (NEGATIVE) U Cocaine Metab Screen (NEGATIVE) U Marijuana (THC) Screen (NEGATIVE) Ethyl Alcohol (0.000-0.080) g/dL 04/03/19 04/03/19 04/03/19 Range/Units 19:45 19:45 20:45 WBC (4.0-10.2) K/uL RBC (3.77-5.09) M/uL Hgb (11.7-15.5) g/dL Hct (34.0-46.0) % MCV (84.0-98.0) fL MCH (28.2-33.3) pg MCHC (31.7-36.0) g/dL RDW (11.2-14.1) % Plt Count (150-350) K/uL Neut % (Auto) (45.0-80.0) % Lymph % (Auto) (10.0-50.0) % [place] % (Auto) (2.0-14.0) % Eos % (Auto) (0.0-5.0) % Baso % (Auto) (0.0-2.0) % Neut # (Auto) (1.40-7.00) K/uL Lymph # (Auto) (0.50-3.50) K/uL [place] # (Auto) (0.00-1.00) K/uL Eos # (Auto) (0.00-0.50) K/uL Baso # (Auto) (0.00-0.20) K/uL PT (9.5-12.0) SEC INR APTT (21.0-31.3) SEC D-Dimer, Quantitative (0-400) ng/mL Sodium 140 (136-145) mmol/L Potassium 4.0 (3.5-5.1) mmol/L Chloride 103 (98-107) mmol/L Carbon Dioxide 23.1 (21.0-32.0) mmol/L BUN 25 H (7-18) mg/dL Creatinine 0.95 (0.51-1.17) mg/dL Est Cr Clr Drug Dosing TNP Estimated GFR (MDRD) > 60 mL/min Glucose 117 H (74-106) mg/dL Hemoglobin A1c (4.3-5.7) % Lactic Acid 1.8 (0.4-2.0) mmol/L Uric Acid 4.9 (2.6-7.2) mg/dL Calcium 8.7 (8.5-10.1) mg/dL Magnesium 2.2 (1.8-2.4) mg/dL Total Bilirubin 0.2 (0.2-1.0) mg/dL AST 23 (15-37) U/L ALT 52 (12-78) U/L Alkaline Phosphatase 112 (46-116) IU/L Creatine Kinase 185 (26-308) U/L Creatine Kinase Index 0.5 (0.0-2.5) % CK-MB (CK-2) 0.90 (0.00-3.60) ng/mL Troponin I 0.000 (0.000-0.056) ng/mL NT-Pro-B Natriuret Pep 291 H (0-125) pg/mL Total Protein 7.5 (6.4-8.2) g/dL Albumin 3.4 (3.4-5.0) g/dL Triglycerides (30-150) mg/dL Cholesterol (100-200) mg/dL LDL Cholesterol, Calc (0-100) mg/dL HDL Cholesterol (40-60) mg/dL TSH, Ultra Sensitive 1.552 (0.358-3.740) mIU/mL Specimen Type Urincc Urine Color Yellow Urine Appearance Clear Urine pH 6.0 (5.0-9.0) Ur Specific [place] 1.015 (1.005-1.030) Urine Protein Negative (NEGATIVE) mg/dL Urine Glucose (UA) Negative (NEGATIVE) mg/dL Urine Ketones Negative (NEGATIVE) mg/dL Urine Occult Blood Trace-intact H (NEGATIVE) Urine Nitrite Negative (NEGATIVE) Urine Bilirubin Negative (NEGATIVE) Urine Urobilinogen 0.2 (0.2-1.0) E.U./dL Ur Leukocyte Esterase Negative (NEGATIVE) Urine RBC Not seen /HPF Urine WBC Not seen /HPF Ur Epithelial Cells Rare /LPF Urine Bacteria Rare (NONE TO FEW) /HPF Urinalysis Comment Urine Opiates Screen (NEGATIVE) Urine Methadone Screen (NEGATIVE) U Acetaminophen Screen (NEGATIVE) Ur Barbiturates Screen (NEGATIVE) Ur Tricyclics Screen (NEGATIVE) Ur Phencyclidine Scrn (NEGATIVE) Ur Amphetamine Screen (NEGATIVE) U Methamphetamines Scrn (NEGATIVE) U Benzodiazepines Scrn (NEGATIVE) U Cocaine Metab Screen (NEGATIVE) U Marijuana (THC) Screen (NEGATIVE) Ethyl Alcohol 0.001 (0.000-0.080) g/dL 04/03/19 04/04/19 04/04/19 Range/Units 20:45 07:35 07:35 WBC 10.6 H (4.0-10.2) K/uL RBC 3.83 (3.77-5.09) M/uL Hgb 12.2 (11.7-15.5) g/dL Hct 37.9 (34.0-46.0) % MCV 99.0 H (84.0-98.0) fL MCH 31.9 (28.2-33.3) pg MCHC 32.2 (31.7-36.0) g/dL RDW 11.7 (11.2-14.1) % Plt Count 358 H (150-350) K/uL Neut % (Auto) 73.8 (45.0-80.0) % Lymph % (Auto) 19.3 (10.0-50.0) % [place] % (Auto) 6.8 (2.0-14.0) % Eos % (Auto) 0.0 (0.0-5.0) % Baso % (Auto) 0.1 (0.0-2.0) % Neut # (Auto) 7.85 H (1.40-7.00) K/uL Lymph # (Auto) 2.05 (0.50-3.50) K/uL [place] # (Auto) 0.72 (0.00-1.00) K/uL Eos # (Auto) 0.00 (0.00-0.50) K/uL Baso # (Auto) 0.01 (0.00-0.20) K/uL PT (9.5-12.0) SEC INR APTT (21.0-31.3) SEC D-Dimer, Quantitative (0-400) ng/mL Sodium 139 (136-145) mmol/L Potassium 4.5 (3.5-5.1) mmol/L Chloride 104 (98-107) mmol/L Carbon Dioxide 25.2 (21.0-32.0) mmol/L BUN 32 H (7-18) mg/dL Creatinine 0.80 (0.51-1.17) mg/dL Est Cr Clr Drug Dosing 97.27 Estimated GFR (MDRD) > 60 mL/min Glucose 106 (74-106) mg/dL Hemoglobin A1c (4.3-5.7) % Lactic Acid (0.4-2.0) mmol/L Uric Acid (2.6-7.2) mg/dL Calcium 8.6 (8.5-10.1) mg/dL Magnesium (1.8-2.4) mg/dL Total Bilirubin 0.3 (0.2-1.0) mg/dL AST 24 (15-37) U/L ALT 48 (12-78) U/L Alkaline Phosphatase 101 (46-116) IU/L Creatine Kinase 104 (26-308) U/L Creatine Kinase Index 0.9 (0.0-2.5) % CK-MB (CK-2) 0.90 (0.00-3.60) ng/mL Troponin I 0.000 (0.000-0.056) ng/mL NT-Pro-B Natriuret Pep 435 H (0-125) pg/mL Total Protein 6.9 (6.4-8.2) g/dL Albumin 3.2 L (3.4-5.0) g/dL Triglycerides 167 H (30-150) mg/dL Cholesterol 226 H (100-200) mg/dL LDL Cholesterol, Calc 125 H (0-100) mg/dL HDL Cholesterol 68 H (40-60) mg/dL TSH, Ultra Sensitive (0.358-3.740) mIU/mL Specimen Type Urine Color Urine Appearance Urine pH (5.0-9.0) Ur Specific [place] (1.005-1.030) Urine Protein (NEGATIVE) mg/dL Urine Glucose (UA) (NEGATIVE) mg/dL Urine Ketones (NEGATIVE) mg/dL Urine Occult Blood (NEGATIVE) Urine Nitrite (NEGATIVE) Urine Bilirubin (NEGATIVE) Urine Urobilinogen (0.2-1.0) E.U./dL Ur Leukocyte Esterase (NEGATIVE) Urine RBC /HPF Urine WBC /HPF Ur Epithelial Cells /LPF Urine Bacteria (NONE TO FEW) /HPF Urinalysis Comment Urine Opiates Screen Negative (NEGATIVE) Urine Methadone Screen Negative (NEGATIVE) U Acetaminophen Screen Positive H (NEGATIVE) Ur Barbiturates Screen Negative (NEGATIVE) Ur Tricyclics Screen Positive H (NEGATIVE) Ur Phencyclidine Scrn Negative (NEGATIVE) Ur Amphetamine Screen Negative (NEGATIVE) U Methamphetamines Scrn Negative (NEGATIVE) U Benzodiazepines Scrn Negative (NEGATIVE) U Cocaine Metab Screen Negative (NEGATIVE) U Marijuana (THC) Screen Negative (NEGATIVE) Ethyl Alcohol (0.000-0.080) g/dL 04/04/19 Range/Units 07:35 WBC (4.0-10.2) K/uL RBC (3.77-5.09) M/uL Hgb (11.7-15.5) g/dL Hct (34.0-46.0) % MCV (84.0-98.0) fL MCH (28.2-33.3) pg MCHC (31.7-36.0) g/dL RDW (11.2-14.1) % Plt Count (150-350) K/uL Neut % (Auto) (45.0-80.0) % Lymph % (Auto) (10.0-50.0) % [place] % (Auto) (2.0-14.0) % Eos % (Auto) (0.0-5.0) % Baso % (Auto) (0.0-2.0) % Neut # (Auto) (1.40-7.00) K/uL Lymph # (Auto) (0.50-3.50) K/uL [place] # (Auto) (0.00-1.00) K/uL Eos # (Auto) (0.00-0.50) K/uL Baso # (Auto) (0.00-0.20) K/uL PT (9.5-12.0) SEC INR APTT (21.0-31.3) SEC D-Dimer, Quantitative (0-400) ng/mL Sodium (136-145) mmol/L Potassium (3.5-5.1) mmol/L Chloride (98-107) mmol/L Carbon Dioxide (21.0-32.0) mmol/L BUN (7-18) mg/dL Creatinine (0.51-1.17) mg/dL Est Cr Clr Drug Dosing Estimated GFR (MDRD) mL/min Glucose (74-106) mg/dL Hemoglobin A1c 5.3 (4.3-5.7) % Lactic Acid (0.4-2.0) mmol/L Uric Acid (2.6-7.2) mg/dL Calcium (8.5-10.1) mg/dL Magnesium (1.8-2.4) mg/dL Total Bilirubin (0.2-1.0) mg/dL AST (15-37) U/L ALT (12-78) U/L Alkaline Phosphatase (46-116) IU/L Creatine Kinase (26-308) U/L Creatine Kinase Index (0.0-2.5) % CK-MB (CK-2) (0.00-3.60) ng/mL Troponin I (0.000-0.056) ng/mL NT-Pro-B Natriuret Pep (0-125) pg/mL Total Protein (6.4-8.2) g/dL Albumin (3.4-5.0) g/dL Triglycerides (30-150) mg/dL Cholesterol (100-200) mg/dL LDL Cholesterol, Calc (0-100) mg/dL HDL Cholesterol (40-60) mg/dL TSH, Ultra Sensitive (0.358-3.740) mIU/mL Specimen Type Urine Color Urine Appearance Urine pH (5.0-9.0) Ur Specific [place] (1.005-1.030) Urine Protein (NEGATIVE) mg/dL Urine Glucose (UA) (NEGATIVE) mg/dL Urine Ketones (NEGATIVE) mg/dL Urine Occult Blood (NEGATIVE) Urine Nitrite (NEGATIVE) Urine Bilirubin (NEGATIVE) Urine Urobilinogen (0.2-1.0) E.U./dL Ur Leukocyte Esterase (NEGATIVE) Urine RBC /HPF Urine WBC /HPF Ur Epithelial Cells /LPF Urine Bacteria (NONE TO FEW) /HPF Urinalysis Comment Urine Opiates Screen (NEGATIVE) Urine Methadone Screen (NEGATIVE) U Acetaminophen Screen (NEGATIVE) Ur Barbiturates Screen (NEGATIVE) Ur Tricyclics Screen (NEGATIVE) Ur Phencyclidine Scrn (NEGATIVE) Ur Amphetamine Screen (NEGATIVE) U Methamphetamines Scrn (NEGATIVE) U Benzodiazepines Scrn (NEGATIVE) U Cocaine Metab Screen (NEGATIVE) U Marijuana (THC) Screen (NEGATIVE) Ethyl Alcohol (0.000-0.080) g/dL Tommy Results Last 24 Hours: Urine culture and sensitivity pending Med Orders - Current: Current Medications Acetaminophen (Tylenol) 650 mg PO Q4H PRN PRN Reason: Pain Last Admin: 04/03/19 22:30 Dose: 650 mg Doxycycline Hyclate (Vibramycin) 100 mg PO BID GLADIS Last Admin: 04/04/19 07:41 Dose: 100 mg Gabapentin (Neurontin) 300 mg PO BEDTIME PRN PRN Reason: restless legs Last Admin: 04/03/19 22:30 Dose: 300 mg Gabapentin (Neurontin) 900 mg PO BID@18,19 [facility] Hydroxyzine HCl (Atarax) 25 mg PO Q8HR PRN PRN Reason: Itching Ketorolac Tromethamine (Toradol) 15 mg IVPUSH Q6H PRN PRN Reason: Pain (severe 7-10) Stop: 04/06/19 21:00 Last Admin: 04/04/19 09:40 Dose: 15 mg Lidocaine (Aspercreme 4%) 1 each TOP DAILY [facility] Last Admin: 04/04/19 10:04 Dose: 1 each Magnesium Oxide (Magnesium Oxide) 400 mg PO DAILY [facility] Last Admin: 04/04/19 07:40 Dose: 400 mg Miscellaneous Information (Remove Patch) 1 ea TRDERM DAILY@1999 [facility] Non-Formulary Medication (Armodafinil [Nuvigil]) 1 tab PO DAILY [facility] Non-Formulary Medication (Clindamycin/Niacinamide [Clindamycin 1%-Niacinamide 4% ]) 1 applic TOP BID [facility] Propranolol HCl (Inderal La) 180 mg PO DAILY [facility] Last Admin: 04/04/19 07:41 Dose: 180 mg Sodium Chloride (Saline Flush) 10 ml FLUSH ASDIRECTED PRN PRN Reason: Keep Vein Open Last Admin: 04/04/19 03:42 Dose: 10 ml Sodium Chloride (Saline Flush) 10 ml FLUSH Q12HR PRN PRN Reason: Keep Vein Open Temazepam (Restoril) 15 mg PO BEDTIME PRN PRN Reason: Insomnia Last Admin: 04/04/19 04:12 Dose: 15 mg Discontinued Medications Diazepam (Valium) 2.5 mg IVPUSH ONETIME ONE Stop: 04/03/19 21:05 Last Admin: 04/03/19 21:17 Dose: 2.5 mg Famotidine (Pepcid) 40 mg IVPUSH ONETIME ONE Stop: 04/03/19 19:33 Last Admin: 04/03/19 19:48 Dose: 40 mg Ketorolac Tromethamine (Toradol) 30 mg IVPUSH ONETIME ONE Stop: 04/03/19 21:05 Last Admin: 04/03/19 21:15 Dose: 30 mg Lidocaine (Lidoderm 5%) 700 mg TOP DAILY [facility] Last Admin: 04/04/19 10:03 Dose: Not Given - Exam Quality Assessment: DVT Prophylaxis. No: Supplemental Oxygen, Central Line/PICC , Urine Catheter, Restraints General: Alert, Oriented, Cooperative, No Acute Distress HEENT: Pupils Equal, Pupils Reactive, EOMI, Mucous Membr. Moist/[place]: Supple, Trachea Midline, No JVD, No Thyromegaly, +2 Carotid Pulse wo Bruit. No: Lymphadenopathy Lungs: Clear to Auscultation, Normal Respiratory Effort. No: Rub Cardiovascular: Regular Rate, Regular Rhythm, No Murmurs. No: Gallops, Rubs GI/Abdominal Exam: Normal Bowel Sounds, Soft, Non-Tender, No Organomegaly, No Distention, No Abnormal Bruit, No Mass, Other (Obese). No: Guarding (Female) Exam: Deferred Back Exam: Normal Inspection, Full Range of Motion. No: CVA Tenderness (L), CVA Tenderness (R), Muscle Spasm Extremities: Normal Capillary Refill, Pedal Edema (Trace to +1 bilateral pedal/ pretibial edema), Arm Pain (As below), Limited Range of Motion (Right shoulder secondary to chronic shoulder pain). No: Joint Swelling, Ngozi's Sign Peripheral Pulses: 2+: Radial (L), Radial (R), Dorsalis Pedis (L), Dorsalis Pedis (R) Skin: Warm, Dry, Intact. No: Ecchymosis Neurological: No New Focal Deficit, Other (No confusion or return of seizure activity) Psy/Mental Status: Alert, Anxious (Mild to moderate), Depressed (Mild to moderate). No: Agitated, Hallucinations, Withdrawal Symptoms EKG INTERPRETATION EKG Date: 04/04/19 Time: 08:43 Rhythm: Other (Sinus bradycardia) Rate (Beats/Min): 54 [place]: Normal (Left cardiac axis) P-Wave: Present (Mild diffuse biphasic P waves) QRS: RBBB (0.10 seconds representing repolarization changes versus borderline incomplete right bundle branch block) ST-T: Other (More pronounced T-wave inversion in leads 3, aVF, and change of T wave inversions to leads V3 through V6 with resolution of T-wave inversion in lead V2) MO/PQ Interval: 0.18 seconds Comparison: Change From Previous EKG (As above since 04/03/19) EKG Interpretation Comments: 1. New inferolateral cardiac ischemia changed from anterolateral on admission 2. Borderline Incomplete right bundle branch block - Problem List & Annotations (1) Syncope SNOMED Code(s): 946621713 Code(s): R55 - SYNCOPE AND COLLAPSE Status: Acute Priority: High Current Visit: Yes Onset Date: 04/03/19 Qualifiers: Syncope type: unspecified Qualified Code(s): R55 - Syncope and collapse Annotation/Comment:: No return of syncopal type symptoms and/or seizure activity since admission. Note persistent EKG changes as above. Differential diagnoses for her syncopal episodes include cardiac, seizure, drug interaction, migraine equivalent, and/or drug overdose prior to admission. Recurrent syncopal episodes prior to admission suspicious for probable previously undiagnosed seizure disorder. Postictal sedation, which was almost completely resolved at time of my arrival to the emergency room. Note that I was present in the emergency room with the ambulance came to this facility. Normal neurological exam at time of admission with normal neurological checks during this hospitalization. Outpatient workup including EEG, neurology consultation, Cardiolite Stress test, etc. recommended. Note mild leukocytosis likely secondary to stress reaction on admission significantly improved on 04/04 with no fever or signs of infection. Low-dose IV diazepam was also given in the emergency room for seizure prophylaxis and treatment of her migraine headache. (2) Incomplete right bundle branch block SNOMED Code(s): 749075811 Code(s): I45.10 - UNSPECIFIED RIGHT BUNDLE-BRANCH BLOCK Status: Acute Priority: [facility] Current Visit: Yes Onset Date: 04/03/19 Annotation/Comment: : Incomplete right bundle branch block with no chest pain or anginal type symptoms throughout this hospitalization. Note some possible original anteroinferior ischemia by EKG on admission however subsequent change to inferolateral ischemia on 04/04. Continue routine rule out AL orders with cardiology consultation depending on her clinical course. EKG changes possibly secondary to probable seizure as above. Chest pain protocol was not initiated in the emergency room secondary to absence of anginal symptoms. (3) Migraine headache SNOMED Code(s): 11448525 Code(s): G43.909 - MIGRAINE, UNSP, NOT INTRACTABLE, WITHOUT STATUS MIGRAINOSUS Status: Acute Priority: High Current Visit: Yes Onset Date: 04/03/19 Qualifiers: Migraine type: without aura Status migrainosus presence: without status migrainosus Intractability: not intractable Qualified Code(s): G43.009 - Migraine without aura, not intractable, without status migrainosus Annotation/Comment:: Persistent migraine headache. IV Toradol given in the emergency room and continued during this hospitalization. Extensive consultation was conducted this morning with the patient with nurse also present. Note significant polypharmacy with previous history of multiple overdoses in the past. She is currently receiving care by multiple facilities including [facility], and [facility]. She does not have a regular primary care physician. Patient was strongly encouraged to establish a primary care physician NATACHA to coordinate her care with multiple current specialists, including neurology, orthopedics, etc.. Note urine drug screen did show excessive acetaminophen use with no clinical evidence of acetaminophen toxicity. In addition, note positive tricyclics in her drug screen despite the patient denying to being on this medication. She should be referred to the pain clinic by her regular provider at discharge. (4) Asthma SNOMED Code(s): 646652286 Code(s): J45.909 - UNSPECIFIED ASTHMA, UNCOMPLICATED Status: Chronic Priority: Medium Current Visit: Yes Qualifiers: Asthma severity: mild Asthma persistence: intermittent Asthma complication type: uncomplicated Qualified Code(s): J45.20 - Mild intermittent asthma, uncomplicated Annotation/Comment:: No recent fever or bronchitic type symptoms. (5) Osteoarthritis SNOMED Code(s): 804376764 Code(s): M19.90 - UNSPECIFIED OSTEOARTHRITIS, UNSPECIFIED SITE Status: Chronic Priority: Medium Current Visit: Yes Qualifiers: Osteoarthritis location: multiple joints Osteoarthritis type: primary Qualified Code(s): M15.0 - Primary generalized (osteo)arthritis Annotation/Comment:: Stable by history, including chronic right shoulder pain, with no history of injury, fall, from syncopal episodes as above. (6) Peptic reflux disease SNOMED Code(s): 722759450 Code(s): K21.9 - GASTRO-ESOPHAGEAL REFLUX DISEASE WITHOUT ESOPHAGITIS Status: Chronic Priority: Medium Current Visit: Yes Annotation/Comment:: High-dose IV Pepcid given in the emergency room. No abdominal complaints at this time. (7) Mixed anxiety depressive disorder SNOMED Code(s): 239291895 Code(s): F41.8 - OTHER SPECIFIED ANXIETY DISORDERS Status: Chronic Priority: High Current Visit: Yes Annotation/Comment:: No evidence of acute overdose today, however note previous multiple unintentional drug overdoses per family history. Narcan not given by the it professional with Romazicon not available in the ambulance. She would benefit from drug rehabilitation program and continue to observe her anxiety and depression closely by her regular providers. Note polypharmacy as above with counseling conducted during today's visit. (8) Polypharmacy SNOMED Code(s): 381229733 Code(s): Z79.899 - OTHER CHEST PAIN COORDINATOR (CURRENT) DRUG THERAPY Status: Chronic Current Visit: Yes Onset Date: ~04/03/19 Annotation/Comment:: As above - Problem List Review Problem List Initiated/Reviewed/Updated: Yes - My Orders Last 24 Hours: My Active Orders 04/03/19 19:32 Sodium Chloride 0.9% [Saline Flush] 10 ml FLUSH ASDIRECTED PRN Resuscitation Status Stat 04/03/19 19:33 Cardiac Monitoring [RC] Q2HR EKG Documentation Completion [RC] ASDIRECTED Oxygen Therapy, ED [RC] PRN Peripheral IV Care [RC] . DIRECTED Chest 1V Frontal [CR] Stat Head wo Cont [CT] Stat Peripheral IV Insertion Adult [OM.PC] Stat 04/03/19 19:45 PROLACTIN [REF] Stat 04/03/19 20:45 CULTURE URINE [RM] Routine 04/03/19 21:44 Gabapentin [Neurontin] 300 mg PO BEDTIME PRN hydrOXYzine HCl [Atarax] 25 mg PO Q8HR PRN 04/03/19 21:46 Communication Order [RC] ROUTINE Height and Weight [RC] DAILY Intake and Output Strict [RC] 06,18 Oxygen Therapy [RC] PRN Pulse Oximetry [RC] ASDIRECTED Up With Assistance [RC] ASDIRECTED Vital Signs [RC] Q2HR OCCULT BLOOD DIAGNOSTIC [OP] Stat Acetaminophen [Tylenol] 650 mg PO Q4H PRN Sodium Chloride 0.9% [Saline Flush] 10 ml FLUSH Q12HR PRN Antiembolic Hose [OM.PC] Routine DVT/VTE Prophylaxis Reflex [OM.PC] Routine GM Immunization Reflex [OM.PC] Click To Edit 04/03/19 21:47 Antiembolic Devices [RC] .Routine Antiembolic Devices [RC] 08,20 Communication, Vaccine [RC] PER UNIT ROUTINE VTE/DVT Education [RC] PER UNIT ROUTINE Vaccines to be Administered [RC] PER UNIT ROUTINE 04/03/19 21:49 Communication Order [RC] ROUTINE 04/03/19 21:54 Communication Order [RC] ROUTINE 04/04/19 03:00 Ketorolac [Toradol] 15 mg IVPUSH Q6H PRN 04/04/19 04:01 Temazepam [Restoril] 15 mg PO BEDTIME PRN 04/04/19 05:11 EKG Documentation Completion [RC] ASDIRECTED 04/04/19 08:00 Armodafinil [Nuvigil] 1 tab PO DAILY Clindamycin/Niacinamide [Clindamycin 1%-Niacinamide 4%] 1 applic TOP BID Doxycycline [Vibramycin] 100 mg PO BID Lidocaine 4% [Aspercreme 4%] 1 each TOP DAILY Magnesium Oxide 400 mg PO DAILY Propranolol [Inderal LA] 180 mg PO DAILY 04/04/19 18:00 Gabapentin [Neurontin] 900 mg PO BID@04/04/19 20:00 Remove Patch 1 ea TRDERM DAILY@1999 - Assessment Assessment:: As above - Plan Plan:: As above. Extensive precautions were given to the patient, who is in agreement with the treatment plan. Planned discharge versus patient transfer tomorrow.
[2019-04-04] MEDS: Potassium Chloride 20 MEQ Tab.ER PO SCH ×2 (11:45→17:35)
[2019-04-04] MEDS: Furosemide 40 MG/4 ML VIAL IVPUSH SCH ×2 (11:45→17:35)
[2019-04-04] MEDS: Gabapentin 300 MG Cap PO SCH ×2 (17:35→19:35)
[2019-04-04] MEDS ORDERED: REMOVE LIDOCAINE TRDERM SCH (20:00)
[2019-04-05] MEDS: Temazepam 15 MG Cap PO PRN (01:31)
[2019-04-05 08:01] LABS: CHLORIDE,CL 102 mmol/L (98-107); SODIUM,NA 138 mmol/L (136-145)
[2019-04-05] MEDS: Potassium Chloride 20 MEQ Tab.ER PO SCH (08:11)
[2019-04-05] MEDS: Furosemide 40 MG/4 ML VIAL IVPUSH SCH (08:11)
[2019-04-05] MEDS: Doxycycline 100 MG Cap PO SCH (08:11)
[2019-04-05] MEDS: Magnesium Oxide 400 MG Tab PO SCH (08:11)
[2019-04-05] MEDS: Propranolol 60 MG Cap.ER PO SCH (08:11)
[2019-04-05] MEDS: Lidocaine 4% 1 each Patch TOP SCH (08:12)
[2019-04-05] MEDS: Acetaminophen 325 MG Tab PO PRN (08:14)
[2019-04-05 08:23] VITALS: BP 125/76; PULSE 77
--- NOTE | 2019-04-05 09:08 | PCM.DCSUM1 ---
Discharge Summary - Hospital Course HPI Initial Comments: See emergency room note/admission H&P Brief History: See emergency room note/admission H&P Diagnosis: Stroke: No Modified Show Low Scale: No Symptoms at All Modified Show Low Scale Score: 0 - Discharge Data Discharge Date: 04/05/19 Discharge Disposition: Home, Self-Care 01 Condition: Good - Referral to Home Health Primary Care Physician: PCP None - Discharge Diagnosis/Problem(s) (1) Syncope SNOMED Code(s): 434934768 ICD Code: R55 - SYNCOPE AND COLLAPSE Status: Acute Priority: High Onset Date: 04/03/19 Problem Details: No return of syncopal type symptoms and/ or seizure activity since admission. Note persistent EKG changes throughout this hospitalization, however improved prior to discharge as below. Differential diagnoses for her syncopal episodes include cardiac, seizure, drug interaction, migraine equivalent, and/or drug overdose prior to admission. Recurrent syncopal episodes prior to admission suspicious for probable previously undiagnosed seizure disorder. Postictal sedation, which was almost completely resolved at time of my arrival to the emergency room. Note that I was present in the emergency room with the ambulance came to this facility. Normal neurological exam at time of admission with normal neurological checks during this hospitalization. Outpatient workup including EEG, neurology consultation, Cardiolite Stress test, etc. recommended as per discharge instructions. Note mild leukocytosis likely secondary to stress reaction on admission significantly improved on 04/04 however somewhat increased on 04/05 with no fever or signs of infection. Patient is already on doxycycline. Observe for now with close follow-up by regular provider. Low-dose IV diazepam was also given in the emergency room for seizure prophylaxis and treatment of her migraine headache, which did improve with IV Toradol therapy throughout this hospitalization. Qualifiers: Syncope type: unspecified Qualified Code(s): R55 - Syncope and collapse (2) Incomplete right bundle branch block SNOMED Code(s): 017432909 ICD Code: I45.10 - UNSPECIFIED RIGHT BUNDLE-BRANCH BLOCK Status: Acute Priority: High Onset Date: 04/03/19 Problem Details: Incomplete right bundle branch block with no chest pain or anginal type symptoms throughout this hospitalization. Note some possible original anteroinferior ischemia by EKG on admission however subsequent change to inferolateral ischemia on 04/04 with improved EKG prior to discharge.. Negative serial cardiac enzymes with cardiology consultation depending on her clinical course. EKG changes possibly secondary to probable seizure as above. Chest pain protocol was not initiated in the emergency room secondary to absence of anginal symptoms. Her BNP was somewhat elevated during this hospitalization with significant improvement with IV Lasix therapy on day prior to discharge. No clinical evidence of significant CHF, however echocardiogram recommended secondary to her possible coronary artery disease and syncopal episode as above. Diuretic therapy will not be continued at discharge for now. (3) Migraine headache SNOMED Code(s): 81337540 ICD Code: G43.909 - MIGRAINE, UNSP, NOT INTRACTABLE, WITHOUT STATUS MIGRAINOSUS Status: Acute Priority: High Onset Date: 04/03/19 Problem Details: Persistent although improved migraine headache at discharge. IV Toradol given in the emergency room and continued during this hospitalization. Extensive consultation was conducted on 04/04 with the patient with nurse also present. Note significant polypharmacy with previous history of multiple overdoses in the past. She is currently receiving care by multiple facilities including [facility], [facility], and [facility]. She does not have a regular primary care physician, although she does now agree to establish a primary care provider at [facility] in [place]. She was strongly encouraged to have her primary physician coordinate her care and medications with multiple current specialists, including neurology, orthopedics, etc.. Note urine drug screen did show excessive acetaminophen use with no clinical evidence of acetaminophen toxicity. In addition, note positive tricyclics in her drug screen despite the patient denying to being on this medication. She should be referred to the pain clinic by her regular provider at discharge. No narcotic medications were given during this hospitalization, which the patient apparently seemed to tolerate well. She was cautioned to consider the acetaminophen content in her narcotic medications and to avoid these narcotic medications as much as possible. Qualifiers: Migraine type: without aura Status migrainosus presence: without status migrainosus Intractability: not intractable Qualified Code(s): G43.009 - Migraine without aura, not intractable, without status migrainosus (4) Asthma SNOMED Code(s): 577649944 ICD Code: J45.909 - UNSPECIFIED ASTHMA, UNCOMPLICATED Status: Chronic Priority: Medium Problem Details: No recent fever or bronchitic type symptoms. Note Leukocytosis as above. Qualifiers: Asthma severity: mild Asthma persistence: intermittent Asthma complication type: uncomplicated Qualified Code(s): J45.20 - Mild intermittent asthma, uncomplicated (5) Osteoarthritis SNOMED Code(s): 416148481 ICD Code: M19.90 - UNSPECIFIED OSTEOARTHRITIS, UNSPECIFIED SITE Status: Chronic Priority: Medium Problem Details: Stable by history, including chronic right shoulder pain, with no history of injury, fall, from syncopal episodes as above. Patient is closely being followed by orthopedics with possible upcoming right shoulder surgery. She was advised to consider repeat physical therapy/occupational therapy evaluation with initiation of home exercise program prior to consideration of an additional shoulder surgery. This may be difficult secondary to previous Workmen's Compensation injury with further PT therapy apparently denied in the past by her history. Qualifiers: Osteoarthritis location: multiple joints Osteoarthritis type: primary Qualified Code(s): M15.0 - Primary generalized (osteo)arthritis (6) Peptic reflux disease SNOMED Code(s): 693179389 ICD Code: K21.9 - GASTRO-ESOPHAGEAL REFLUX DISEASE WITHOUT ESOPHAGITIS Status: Chronic Priority: Medium Problem Details: High-dose IV Pepcid given in the emergency room. No abdominal complaints at this time. (7) Mixed anxiety depressive disorder SNOMED Code(s): 751049837 ICD Code: F41.8 - OTHER SPECIFIED ANXIETY DISORDERS Status: Chronic Priority: High Problem Details: No evidence of acute overdose on admission, however note previous multiple unintentional drug overdoses per family history. Narcan not given by the combination machine tool setter with Romazicon not available in the ambulance. She would benefit from drug rehabilitation program and continue to observe her anxiety and depression closely by her regular providers. Note polypharmacy as above with counseling conducted as above. (8) Polypharmacy SNOMED Code(s): 164362267 ICD Code: Z79.899 - OTHER SHELTER (CURRENT) DRUG THERAPY Status: Chronic Onset Date: ~04/03/19 Problem Details: As above - Patient Summary/Data Operative Procedure(s) Performed: None Complications: None Consults: None Labs Pending at D/C: Prolactin level Recommended Follow-up Testing/Procedures: As per discharge instructions Planned Operative Procedure(s) after DC: As per discharge instructions Hospital Course: The patient was placed in observation status on telemetry with no recurrence of seizure activity during this hospitalization. Note that a definite diagnosis of a seizure disorder has not been made to this point with further workup recommended by her regular providers as per discharge instructions. The patient will therefore not be placed on driving restrictions at this time. Despite EKG changes as above no chest pain or anginal symptoms throughout this hospitalization, however further workup is recommended. Note some leukocytosis at discharge with no evidence of infection as above and patient already on doxycycline. No complications during this hospitalization. The patient was extensively counseled throughout this hospital concerning her polypharmacy, etc. as above. Emotional support was also provided. - Patient Instructions Diet: Heart Healthy Diet Diet, Other: 1500-calorie with weight loss in moderation Activity: As Tolerated Driving: May Drive Today Showering/Bathing: May Shower Notify Provider of: Fever, Increased Pain, Nausea and/or Vomiting Other/Special Instructions: 1. Followup with your regular provider in 5-7 days as directed for reevaluation and recommended chest x-ray, EKG, CBC, comprehensive metabolic panel, magnesium level, CK, CK-MB, troponin I, and BNP. Bring these discharge instructions with you to that visit. 2. At follow-up discuss with your regular provider further recommended workup, including possible neurology referral for your possible seizure disorder, EEG, echocardiogram secondary to your recent syncope, Cardiolite stress test secondary to EKG changes during this hospitalization, and referral to a pain clinic secondary to your current multiple medication use. 3. Discuss with your regular provider possible repeat PT/OT for your chronic right shoulder pain prior to possible future right shoulder surgery. 4. Tylenol 650 mg by mouth every 4 hours when necessary as directed. Note decreased dose secondary to excessive previous acetaminophen use. Maximum dose of 4000 mg of Tylenol per day , including the Tylenol content in your narcotic medications, which should be only used with extreme discussion as discussed. 5. BenGay or equivalent, heating pad, and/or ice packs as directed. 6. Immediately after this visit verify that your cellular telephone's voicemail has been activated and is empty. Also verify that your home telephone's answering machine is operating properly and has space to receive messages. Note that it is sometimes necessary for us to be able to contact you at a later date to discuss your medical care. 7. Please remember that we are ALWAYS here for you and want to answer any questions you may have. Feel free to call the hospital any time and we call you back NATACHA. 8. In addition, discuss with your regular provider recommended discontinuation of your hormone replacement therapy secondary to your migraine headaches and increased risk of a stroke with this medication. - Discharge Plan *PRESCRIPTION DRUG MONITORING PROGRAM REVIEWED*: Not Applicable *COPY OF PRESCRIPTION DRUG MONITORING REPORT IN PATIENT INA: Not Applicable Home Medications: Home Meds Estradiol [Estrace] 1.5 tab PO DAILY 04/24/18 [History] Gabapentin [Neurontin] 900 mg PO BID@18,19 04/24/18 [History] Loperamide [Imodium] 6 cap PO DAILY PRN 04/24/18 [History] Magnesium Oxide [Magnesium] 500 mg PO DAILY 04/24/18 [History] Modafinil [Provigil] 100 - 200 mg PO DAILY PRN 04/24/18 [History] Propranolol [Inderal LA] 180 mg PO DAILY 04/24/18 [History] Rizatriptan Benzoate [Rizatriptan] 10 mg PO ASDIRECTED PRN 04/24/18 [History] ClonazePAM [KlonoPIN] 2 tab PO 1900 04/03/19 [History] Cyclobenzaprine [Flexeril] 1 tab PO TID PRN 04/03/19 [History] Diclofenac Sodium [Voltaren] 1 tab PO BID 04/03/19 [History] Doxycycline [Vibramycin] 1 tab PO BID 04/03/19 [History] Hydrocodone/Acetaminophen [Belle 5-325 Tablet] 1 - 2 tab PO Q4HR PRN 04/03/19 [ History] Lidocaine 5% [Lidoderm 5%] 1 patch TOP DAILY 04/03/19 [History] Acetaminophen [Tylenol] 650 mg PO Q4H PRN tablet 04/05/19 [Rx] Armodafinil [Nuvigil] 1 tab PO DAILY 04/05/19 [Rx] Clindamycin/Niacinamide [Clindamycin 1%-Niacinamide 4%] 1 applic TOP BID [Rx] hydrOXYzine HCl [hydrOXYzine] 25 mg PO Q8HR PRN tablet 04/05/19 [Rx] Oxygen Therapy Mode: Room Air Patient Handouts: Seizure, Adult, [id number] Forms: ED Department Discharge Referrals: PCP,None [Primary Care Provider] - - Discharge Summary/Plan Comment DC Time >30 min.: Yes (Coordination of care ) Discharge Summary/Plan Comment: As above. Extensive precautions were given to the patient, who is in agreement with the treatment plan. See Patient Instructions for further treatment and plan. - General Info Date of Service: 04/05/19 Admission Dx/Problem (Free Text: 1. Syncope 2. Migraine headache Functional Status: Reports: Pain Controlled, Tolerating Diet, Ambulating, Urinating. Denies: New Symptoms, Incentive Spirometry Numeric/FACES Score: 4 (Frontal migraine headache) - Review of Systems General: Reports: No Symptoms. Denies: Fever, Weakness, Fatigue, Malaise, Chills, Night Sweats, Appetite (Adequate) HEENT: Reports: Headaches. Denies: Dysphasia, Ear Pain, Eye Pain, Post Nasal Drip, Sinus Congestion, Sore Throat, Rhinitis, Visual Changes Pulmonary: Reports: No Symptoms. Denies: Shortness of Breath, Pleuritic Chest Pain, Cough, Sputum, Hemoptysis, Wheezing Cardiovascular: Reports: Edema (Stable dependent). Denies: Chest Pain, Palpitations, Dyspnea on Exertion, Orthopnea, PND, Lightheadedness Gastrointestinal: Reports: No Symptoms, Other (Normal bowel movement this morning). Denies: Abdominal Pain, Constipation, Decreased Appetite, Diarrhea, Difficulty Swallowing, Flatus, Hematochezia, Melena, Nausea, Vomiting Genitourinary: Reports: Incontinence (Stable chronic). Denies: Dysuria, Frequency, Burning, Pain, Urgency, Hematuria, Retention, Flank Pain Musculoskeletal: Reports: Shoulder Pain (Stable chronic right shoulder pain). Denies: Neck Pain, Arm Pain, Hand Pain, Back Pain, Leg Pain, Foot Pain, Joint Pain, Joint Swelling Skin: Reports: No Symptoms. Denies: Diaphoresis, Bruising Neurological: Reports: Headache. Denies: Confusion, Dizziness, Numbness, Paresthesia, Seizure, Syncope, Tingling, Trouble Speaking, Difficulty Walking, Weakness, Gait Disturbance Psychiatric: Reports: Depression (Stable mild), Anxiety (Stable mild). Denies: Confusion, Agitation, Cravings, Hallucinations - Patient Data Vitals - Most Recent: Last Vital Signs Temp 36.7 C 04/05/19 08:00 Pulse 77 04/05/19 08:00 Resp 18 04/05/19 08:00 BP 125/76 04/05/19 08:00 Pulse Ox 97 04/05/19 08:00 Weight - Most Recent: 136.35 kg I&O - Last 24 hours: Intake & Output 04/04/19 04/05/19 04/05/19 22:59 06:59 14:59 Intake Total 840 240 Output Total 4400 600 Balance -3560 -360 Imaging Impressions - Last 24 hrs: securities sales associate shows normal sinus rhythm in the 60s to 80s with no ectopy or arrhythmia Chest x-ray, portable, on 04/03/19 shows extremely poor inspiratory film with moderately elevated right hemidiaphragm, however no significant cardiomegaly, CHF, pulmonary infiltrates, pneumothorax, etc. Lab Results - Last 24 hrs: Laboratory Results - last 24 hr 04/04/19 04/05/19 04/05/19 Range/Units 13:49 07:15 07:15 WBC 14.1 H (4.0-10.2) K/uL RBC 4.06 (3.77-5.09) M/uL Hgb 13.0 (11.7-15.5) g/dL Hct 40.0 (34.0-46.0) % MCV 98.5 H (84.0-98.0) fL MCH 32.0 (28.2-33.3) pg MCHC 32.5 (31.7-36.0) g/dL RDW 11.9 (11.2-14.1) % Plt Count 356 H (150-350) K/uL Neut % (Auto) 73.1 (45.0-80.0) % Lymph % (Auto) 19.8 (10.0-50.0) % [place] % (Auto) 6.9 (2.0-14.0) % Eos % (Auto) 0.1 (0.0-5.0) % Baso % (Auto) 0.1 (0.0-2.0) % Neut # (Auto) 10.33 H (1.40-7.00) K/uL Lymph # (Auto) 2.80 (0.50-3.50) K/uL [place] # (Auto) 0.98 (0.00-1.00) K/uL Eos # (Auto) 0.01 (0.00-0.50) K/uL Baso # (Auto) 0.01 (0.00-0.20) K/uL Sodium 138 (136-145) mmol/L Potassium 4.3 (3.5-5.1) mmol/L Chloride 102 (98-107) mmol/L Carbon Dioxide 26.2 (21.0-32.0) mmol/L BUN 28 H (7-18) mg/dL Creatinine 0.75 (0.51-1.17) mg/dL Est Cr Clr Drug Dosing 103.75 mL/min Estimated GFR (MDRD) > 60 mL/min Glucose 104 (74-106) mg/dL Calcium 9.2 (8.5-10.1) mg/dL Creatine Kinase 98 60 (26-308) U/L Creatine Kinase Index 0.8 1.0 (0.0-2.5) % CK-MB (CK-2) 0.80 0.60 (0.00-3.60) ng/mL Troponin I 0.000 0.000 (0.000-0.056) ng/mL NT-Pro-B Natriuret Pep 144 H (0-125) pg/mL Laboratory Tests 04/03/19 04/03/19 04/03/19 Range/Units 19:45 19:45 19:45 WBC 12.6 H (4.0-10.2) K/uL RBC 3.94 (3.77-5.09) M/uL Hgb 12.7 (11.7-15.5) g/dL Hct 38.6 (34.0-46.0) % MCV 98.0 D (84.0-98.0) fL MCH 32.2 (28.2-33.3) pg MCHC 32.9 (31.7-36.0) g/dL RDW 11.8 (11.2-14.1) % Plt Count 408 H (150-350) K/uL Neut % (Auto) 78.6 (45.0-80.0) % Lymph % (Auto) 14.9 (10.0-50.0) % [place] % (Auto) 6.5 (2.0-14.0) % Eos % (Auto) 0.0 (0.0-5.0) % Baso % (Auto) 0.0 (0.0-2.0) % Neut # (Auto) 9.87 H (1.40-7.00) K/uL Lymph # (Auto) 1.87 (0.50-3.50) K/uL [place] # (Auto) 0.82 (0.00-1.00) K/uL Eos # (Auto) 0.00 (0.00-0.50) K/uL Baso # (Auto) 0.00 (0.00-0.20) K/uL PT 9.9 (9.5-12.0) SEC INR 0.9 APTT 23.8 (21.0-31.3) SEC D-Dimer, Quantitative 473 H (0-400) ng/mL Sodium (136-145) mmol/L Potassium (3.5-5.1) mmol/L Chloride (98-107) mmol/L Carbon Dioxide (21.0-32.0) mmol/L BUN (7-18) mg/dL Creatinine (0.51-1.17) mg/dL Est Cr Clr Drug Dosing Estimated GFR (MDRD) mL/min Glucose (74-106) mg/dL Hemoglobin A1c (4.3-5.7) % Lactic Acid (0.4-2.0) mmol/L Uric Acid (2.6-7.2) mg/dL Calcium (8.5-10.1) mg/dL Magnesium (1.8-2.4) mg/dL Total Bilirubin (0.2-1.0) mg/dL AST (15-37) U/L ALT (12-78) U/L Alkaline Phosphatase (46-116) IU/L Creatine Kinase (26-308) U/L Creatine Kinase Index (0.0-2.5) % CK-MB (CK-2) (0.00-3.60) ng/mL Troponin I (0.000-0.056) ng/mL NT-Pro-B Natriuret Pep (0-125) pg/mL Total Protein (6.4-8.2) g/dL Albumin (3.4-5.0) g/dL Triglycerides (30-150) mg/dL Cholesterol (100-200) mg/dL LDL Cholesterol, Calc (0-100) mg/dL HDL Cholesterol (40-60) mg/dL TSH, Ultra Sensitive (0.358-3.740) mIU/mL Prolactin ng/mL Specimen Type Urine Color Urine Appearance Urine pH (5.0-9.0) Ur Specific [place] (1.005-1.030) Urine Protein (NEGATIVE) mg/dL Urine Glucose (UA) (NEGATIVE) mg/dL Urine Ketones (NEGATIVE) mg/dL Urine Occult Blood (NEGATIVE) Urine Nitrite (NEGATIVE) Urine Bilirubin (NEGATIVE) Urine Urobilinogen (0.2-1.0) E.U./dL Ur Leukocyte Esterase (NEGATIVE) Urine RBC /HPF Urine WBC /HPF Ur Epithelial Cells /LPF Urine Bacteria (NONE TO FEW) /HPF Urinalysis Comment Urine Opiates Screen (NEGATIVE) Urine Methadone Screen (NEGATIVE) U Acetaminophen Screen (NEGATIVE) Ur Barbiturates Screen (NEGATIVE) Ur Tricyclics Screen (NEGATIVE) Ur Phencyclidine Scrn (NEGATIVE) Ur Amphetamine Screen (NEGATIVE) U Methamphetamines Scrn (NEGATIVE) U Benzodiazepines Scrn (NEGATIVE) U Cocaine Metab Screen (NEGATIVE) U Marijuana (THC) Screen (NEGATIVE) Ethyl Alcohol (0.000-0.080) g/dL 04/03/19 04/03/19 04/03/19 Range/Units 19:45 19:45 19:45 WBC (4.0-10.2) K/uL RBC (3.77-5.09) M/uL Hgb (11.7-15.5) g/dL Hct (34.0-46.0) % MCV (84.0-98.0) fL MCH (28.2-33.3) pg MCHC (31.7-36.0) g/dL RDW (11.2-14.1) % Plt Count (150-350) K/uL Neut % (Auto) (45.0-80.0) % Lymph % (Auto) (10.0-50.0) % [place] % (Auto) (2.0-14.0) % Eos % (Auto) (0.0-5.0) % Baso % (Auto) (0.0-2.0) % Neut # (Auto) (1.40-7.00) K/uL Lymph # (Auto) (0.50-3.50) K/uL [place] # (Auto) (0.00-1.00) K/uL Eos # (Auto) (0.00-0.50) K/uL Baso # (Auto) (0.00-0.20) K/uL PT (9.5-12.0) SEC INR APTT (21.0-31.3) SEC D-Dimer, Quantitative (0-400) ng/mL Sodium 140 (136-145) mmol/L Potassium 4.0 (3.5-5.1) mmol/L Chloride 103 (98-107) mmol/L Carbon Dioxide 23.1 (21.0-32.0) mmol/L BUN 25 H (7-18) mg/dL Creatinine 0.95 (0.51-1.17) mg/dL Est Cr Clr Drug Dosing TNP Estimated GFR (MDRD) > 60 mL/min Glucose 117 H (74-106) mg/dL Hemoglobin A1c (4.3-5.7) % Lactic Acid 1.8 (0.4-2.0) mmol/L Uric Acid 4.9 (2.6-7.2) mg/dL Calcium 8.7 (8.5-10.1) mg/dL Magnesium 2.2 (1.8-2.4) mg/dL Total Bilirubin 0.2 (0.2-1.0) mg/dL AST 23 (15-37) U/L ALT 52 (12-78) U/L Alkaline Phosphatase 112 (46-116) IU/L Creatine Kinase 185 (26-308) U/L Creatine Kinase Index 0.5 (0.0-2.5) % CK-MB (CK-2) 0.90 (0.00-3.60) ng/mL Troponin I 0.000 (0.000-0.056) ng/mL NT-Pro-B Natriuret Pep 291 H (0-125) pg/mL Total Protein 7.5 (6.4-8.2) g/dL Albumin 3.4 (3.4-5.0) g/dL Triglycerides (30-150) mg/dL Cholesterol (100-200) mg/dL LDL Cholesterol, Calc (0-100) mg/dL HDL Cholesterol (40-60) mg/dL TSH, Ultra Sensitive 1.552 (0.358-3.740) mIU/mL Prolactin 21.2 ng/mL Specimen Type Urine Color Urine Appearance Urine pH (5.0-9.0) Ur Specific [place] (1.005-1.030) Urine Protein (NEGATIVE) mg/dL Urine Glucose (UA) (NEGATIVE) mg/dL Urine Ketones (NEGATIVE) mg/dL Urine Occult Blood (NEGATIVE) Urine Nitrite (NEGATIVE) Urine Bilirubin (NEGATIVE) Urine Urobilinogen (0.2-1.0) E.U./dL Ur Leukocyte Esterase (NEGATIVE) Urine RBC /HPF Urine WBC /HPF Ur Epithelial Cells /LPF Urine Bacteria (NONE TO FEW) /HPF Urinalysis Comment Urine Opiates Screen (NEGATIVE) Urine Methadone Screen (NEGATIVE) U Acetaminophen Screen (NEGATIVE) Ur Barbiturates Screen (NEGATIVE) Ur Tricyclics Screen (NEGATIVE) Ur Phencyclidine Scrn (NEGATIVE) Ur Amphetamine Screen (NEGATIVE) U Methamphetamines Scrn (NEGATIVE) U Benzodiazepines Scrn (NEGATIVE) U Cocaine Metab Screen (NEGATIVE) U Marijuana (THC) Screen (NEGATIVE) Ethyl Alcohol 0.001 (0.000-0.080) g/dL 04/03/19 04/03/19 04/04/19 Range/Units 20:45 20:45 07:35 WBC 10.6 H (4.0-10.2) K/uL RBC 3.83 (3.77-5.09) M/uL Hgb 12.2 (11.7-15.5) g/dL Hct 37.9 (34.0-46.0) % MCV 99.0 H (84.0-98.0) fL MCH 31.9 (28.2-33.3) pg MCHC 32.2 (31.7-36.0) g/dL RDW 11.7 (11.2-14.1) % Plt Count 358 H (150-350) K/uL Neut % (Auto) 73.8 (45.0-80.0) % Lymph % (Auto) 19.3 (10.0-50.0) % [place] % (Auto) 6.8 (2.0-14.0) % Eos % (Auto) 0.0 (0.0-5.0) % Baso % (Auto) 0.1 (0.0-2.0) % Neut # (Auto) 7.85 H (1.40-7.00) K/uL Lymph # (Auto) 2.05 (0.50-3.50) K/uL [place] # (Auto) 0.72 (0.00-1.00) K/uL Eos # (Auto) 0.00 (0.00-0.50) K/uL Baso # (Auto) 0.01 (0.00-0.20) K/uL PT (9.5-12.0) SEC INR APTT (21.0-31.3) SEC D-Dimer, Quantitative (0-400) ng/mL Sodium (136-145) mmol/L Potassium (3.5-5.1) mmol/L Chloride (98-107) mmol/L Carbon Dioxide (21.0-32.0) mmol/L BUN (7-18) mg/dL Creatinine (0.51-1.17) mg/dL Est Cr Clr Drug Dosing Estimated GFR (MDRD) mL/min Glucose (74-106) mg/dL Hemoglobin A1c (4.3-5.7) % Lactic Acid (0.4-2.0) mmol/L Uric Acid (2.6-7.2) mg/dL Calcium (8.5-10.1) mg/dL Magnesium (1.8-2.4) mg/dL Total Bilirubin (0.2-1.0) mg/dL AST (15-37) U/L ALT (12-78) U/L Alkaline Phosphatase (46-116) IU/L Creatine Kinase (26-308) U/L Creatine Kinase Index (0.0-2.5) % CK-MB (CK-2) (0.00-3.60) ng/mL Troponin I (0.000-0.056) ng/mL NT-Pro-B Natriuret Pep (0-125) pg/mL Total Protein (6.4-8.2) g/dL Albumin (3.4-5.0) g/dL Triglycerides (30-150) mg/dL Cholesterol (100-200) mg/dL LDL Cholesterol, Calc (0-100) mg/dL HDL Cholesterol (40-60) mg/dL TSH, Ultra Sensitive (0.358-3.740) mIU/mL Prolactin ng/mL Specimen Type Urincc Urine Color Yellow Urine Appearance Clear Urine pH 6.0 (5.0-9.0) Ur Specific [place] 1.015 (1.005-1.030) Urine Protein Negative (NEGATIVE) mg/dL Urine Glucose (UA) Negative (NEGATIVE) mg/dL Urine Ketones Negative (NEGATIVE) mg/dL Urine Occult Blood Trace-intact H (NEGATIVE) Urine Nitrite Negative (NEGATIVE) Urine Bilirubin Negative (NEGATIVE) Urine Urobilinogen 0.2 (0.2-1.0) E.U./dL Ur Leukocyte Esterase Negative (NEGATIVE) Urine RBC Not seen /HPF Urine WBC Not seen /HPF Ur Epithelial Cells Rare /LPF Urine Bacteria Rare (NONE TO FEW) /HPF Urinalysis Comment Urine Opiates Screen Negative (NEGATIVE) Urine Methadone Screen Negative (NEGATIVE) U Acetaminophen Screen Positive H (NEGATIVE) Ur Barbiturates Screen Negative (NEGATIVE) Ur Tricyclics Screen Positive H (NEGATIVE) Ur Phencyclidine Scrn Negative (NEGATIVE) Ur Amphetamine Screen Negative (NEGATIVE) U Methamphetamines Scrn Negative (NEGATIVE) U Benzodiazepines Scrn Negative (NEGATIVE) U Cocaine Metab Screen Negative (NEGATIVE) U Marijuana (THC) Screen Negative (NEGATIVE) Ethyl Alcohol (0.000-0.080) g/dL 04/04/19 04/04/19 04/04/19 Range/Units 07:35 07:35 13:49 WBC (4.0-10.2) K/uL RBC (3.77-5.09) M/uL Hgb (11.7-15.5) g/dL Hct (34.0-46.0) % MCV (84.0-98.0) fL MCH (28.2-33.3) pg MCHC (31.7-36.0) g/dL RDW (11.2-14.1) % Plt Count (150-350) K/uL Neut % (Auto) (45.0-80.0) % Lymph % (Auto) (10.0-50.0) % [place] % (Auto) (2.0-14.0) % Eos % (Auto) (0.0-5.0) % Baso % (Auto) (0.0-2.0) % Neut # (Auto) (1.40-7.00) K/uL Lymph # (Auto) (0.50-3.50) K/uL [place] # (Auto) (0.00-1.00) K/uL Eos # (Auto) (0.00-0.50) K/uL Baso # (Auto) (0.00-0.20) K/uL PT (9.5-12.0) SEC INR APTT (21.0-31.3) SEC D-Dimer, Quantitative (0-400) ng/mL Sodium 139 (136-145) mmol/L Potassium 4.5 (3.5-5.1) mmol/L Chloride 104 (98-107) mmol/L Carbon Dioxide 25.2 (21.0-32.0) mmol/L BUN 32 H (7-18) mg/dL Creatinine 0.80 (0.51-1.17) mg/dL Est Cr Clr Drug Dosing 97.27 Estimated GFR (MDRD) > 60 mL/min Glucose 106 (74-106) mg/dL Hemoglobin A1c 5.3 (4.3-5.7) % Lactic Acid (0.4-2.0) mmol/L Uric Acid (2.6-7.2) mg/dL Calcium 8.6 (8.5-10.1) mg/dL Magnesium (1.8-2.4) mg/dL Total Bilirubin 0.3 (0.2-1.0) mg/dL AST 24 (15-37) U/L ALT 48 (12-78) U/L Alkaline Phosphatase 101 (46-116) IU/L Creatine Kinase 104 98 (26-308) U/L Creatine Kinase Index 0.9 0.8 (0.0-2.5) % CK-MB (CK-2) 0.90 0.80 (0.00-3.60) ng/mL Troponin I 0.000 0.000 (0.000-0.056) ng/mL NT-Pro-B Natriuret Pep 435 H (0-125) pg/mL Total Protein 6.9 (6.4-8.2) g/dL Albumin 3.2 L (3.4-5.0) g/dL Triglycerides 167 H (30-150) mg/dL Cholesterol 226 H (100-200) mg/dL LDL Cholesterol, Calc 125 H (0-100) mg/dL HDL Cholesterol 68 H (40-60) mg/dL TSH, Ultra Sensitive (0.358-3.740) mIU/mL Prolactin ng/mL Specimen Type Urine Color Urine Appearance Urine pH (5.0-9.0) Ur Specific [place] (1.005-1.030) Urine Protein (NEGATIVE) mg/dL Urine Glucose (UA) (NEGATIVE) mg/dL Urine Ketones (NEGATIVE) mg/dL Urine Occult Blood (NEGATIVE) Urine Nitrite (NEGATIVE) Urine Bilirubin (NEGATIVE) Urine Urobilinogen (0.2-1.0) E.U./dL Ur Leukocyte Esterase (NEGATIVE) Urine RBC /HPF Urine WBC /HPF Ur Epithelial Cells /LPF Urine Bacteria (NONE TO FEW) /HPF Urinalysis Comment Urine Opiates Screen (NEGATIVE) Urine Methadone Screen (NEGATIVE) U Acetaminophen Screen (NEGATIVE) Ur Barbiturates Screen (NEGATIVE) Ur Tricyclics Screen (NEGATIVE) Ur Phencyclidine Scrn (NEGATIVE) Ur Amphetamine Screen (NEGATIVE) U Methamphetamines Scrn (NEGATIVE) U Benzodiazepines Scrn (NEGATIVE) U Cocaine Metab Screen (NEGATIVE) U Marijuana (THC) Screen (NEGATIVE) Ethyl Alcohol (0.000-0.080) g/dL 04/05/19 04/05/19 Range/Units 07:15 07:15 WBC 14.1 H (4.0-10.2) K/uL RBC 4.06 (3.77-5.09) M/uL Hgb 13.0 (11.7-15.5) g/dL Hct 40.0 (34.0-46.0) % MCV 98.5 H (84.0-98.0) fL MCH 32.0 (28.2-33.3) pg MCHC 32.5 (31.7-36.0) g/dL RDW 11.9 (11.2-14.1) % Plt Count 356 H (150-350) K/uL Neut % (Auto) 73.1 (45.0-80.0) % Lymph % (Auto) 19.8 (10.0-50.0) % [place] % (Auto) 6.9 (2.0-14.0) % Eos % (Auto) 0.1 (0.0-5.0) % Baso % (Auto) 0.1 (0.0-2.0) % Neut # (Auto) 10.33 H (1.40-7.00) K/uL Lymph # (Auto) 2.80 (0.50-3.50) K/uL [place] # (Auto) 0.98 (0.00-1.00) K/uL Eos # (Auto) 0.01 (0.00-0.50) K/uL Baso # (Auto) 0.01 (0.00-0.20) K/uL PT (9.5-12.0) SEC INR APTT (21.0-31.3) SEC D-Dimer, Quantitative (0-400) ng/mL Sodium 138 (136-145) mmol/L Potassium 4.3 (3.5-5.1) mmol/L Chloride 102 (98-107) mmol/L Carbon Dioxide 26.2 (21.0-32.0) mmol/L BUN 28 H (7-18) mg/dL Creatinine 0.75 (0.51-1.17) mg/dL Est Cr Clr Drug Dosing 103.75 Estimated GFR (MDRD) > 60 mL/min Glucose 104 (74-106) mg/dL Hemoglobin A1c (4.3-5.7) % Lactic Acid (0.4-2.0) mmol/L Uric Acid (2.6-7.2) mg/dL Calcium 9.2 (8.5-10.1) mg/dL Magnesium (1.8-2.4) mg/dL Total Bilirubin (0.2-1.0) mg/dL AST (15-37) U/L ALT (12-78) U/L Alkaline Phosphatase (46-116) IU/L Creatine Kinase 60 (26-308) U/L Creatine Kinase Index 1.0 (0.0-2.5) % CK-MB (CK-2) 0.60 (0.00-3.60) ng/mL Troponin I 0.000 (0.000-0.056) ng/mL NT-Pro-B Natriuret Pep 144 H (0-125) pg/mL Total Protein (6.4-8.2) g/dL Albumin (3.4-5.0) g/dL Triglycerides (30-150) mg/dL Cholesterol (100-200) mg/dL LDL Cholesterol, Calc (0-100) mg/dL HDL Cholesterol (40-60) mg/dL TSH, Ultra Sensitive (0.358-3.740) mIU/mL Prolactin ng/mL Specimen Type Urine Color Urine Appearance Urine pH (5.0-9.0) Ur Specific [place] (1.005-1.030) Urine Protein (NEGATIVE) mg/dL Urine Glucose (UA) (NEGATIVE) mg/dL Urine Ketones (NEGATIVE) mg/dL Urine Occult Blood (NEGATIVE) Urine Nitrite (NEGATIVE) Urine Bilirubin (NEGATIVE) Urine Urobilinogen (0.2-1.0) E.U./dL Ur Leukocyte Esterase (NEGATIVE) Urine RBC /HPF Urine WBC /HPF Ur Epithelial Cells /LPF Urine Bacteria (NONE TO FEW) /HPF Urinalysis Comment Urine Opiates Screen (NEGATIVE) Urine Methadone Screen (NEGATIVE) U Acetaminophen Screen (NEGATIVE) Ur Barbiturates Screen (NEGATIVE) Ur Tricyclics Screen (NEGATIVE) Ur Phencyclidine Scrn (NEGATIVE) Ur Amphetamine Screen (NEGATIVE) U Methamphetamines Scrn (NEGATIVE) U Benzodiazepines Scrn (NEGATIVE) U Cocaine Metab Screen (NEGATIVE) U Marijuana (THC) Screen (NEGATIVE) Ethyl Alcohol (0.000-0.080) g/dL [facility]ABBY Results - Last 24 hrs: Microbiology 04/03/19 20:45 Urine Culture - Final Urine, Clean Catch MIXED CLIFF SUGGESTIVE OF CONTAMINATION. Med Orders - Current: Current Medications Acetaminophen (Tylenol) 650 mg PO Q4H PRN PRN Reason: Pain Last Admin: 04/05/19 08:14 Dose: 650 mg Doxycycline Hyclate (Vibramycin) 100 mg PO BID [facility] Last Admin: 04/05/19 08:11 Dose: 100 mg Furosemide (Lasix) 40 mg IVPUSH BID [facility] Last Admin: 04/05/19 08:11 Dose: 40 mg Gabapentin (Neurontin) 300 mg PO BEDTIME PRN PRN Reason: restless legs Last Admin: 04/03/19 22:30 Dose: 300 mg Gabapentin (Neurontin) 900 mg PO BID@18,19 [facility] Last Admin: 04/04/19 19:35 Dose: 900 mg Hydroxyzine HCl (Atarax) 25 mg PO Q8HR PRN PRN Reason: Itching Ketorolac Tromethamine (Toradol) 15 mg IVPUSH Q6H PRN PRN Reason: Pain (severe 7-10) Stop: 04/06/19 21:00 Last Admin: 04/04/19 16:08 Dose: 15 mg Lidocaine (Aspercreme 4%) 1 each TOP DAILY [facility] Last Admin: 04/05/19 08:12 Dose: 1 each Magnesium Oxide (Magnesium Oxide) 400 mg PO DAILY [facility] Last Admin: 04/05/19 08:11 Dose: 400 mg Miscellaneous Information (Remove Patch) 1 ea TRDERM DAILY@1999 [facility] Last Admin: 04/04/19 19:35 Dose: 1 ea Non-Formulary Medication (Armodafinil [Nuvigil]) 1 tab PO DAILY [facility] Non-Formulary Medication (Clindamycin/Niacinamide [Clindamycin 1%-Niacinamide 4% ]) 1 applic TOP BID [facility] Potassium Chloride (Klor-Con M20) 20 meq PO BID [facility] Last Admin: 04/05/19 08:11 Dose: 20 meq Propranolol HCl (Inderal La) 180 mg PO DAILY [facility] Last Admin: 04/05/19 08:11 Dose: 180 mg Sodium Chloride (Saline Flush) 10 ml FLUSH ASDIRECTED PRN PRN Reason: Keep Vein Open Last Admin: 04/04/19 11:45 Dose: 10 ml Sodium Chloride (Saline Flush) 10 ml FLUSH Q12HR PRN PRN Reason: Keep Vein Open Last Admin: 04/04/19 17:36 Dose: 10 ml Temazepam (Restoril) 15 mg PO BEDTIME PRN PRN Reason: Insomnia Last Admin: 04/05/19 01:31 Dose: 15 mg Discontinued Medications Diazepam (Valium) 2.5 mg IVPUSH ONETIME ONE Stop: 04/03/19 21:05 Last Admin: 04/03/19 21:17 Dose: 2.5 mg Famotidine (Pepcid) 40 mg IVPUSH ONETIME ONE Stop: 04/03/19 19:33 Last Admin: 04/03/19 19:48 Dose: 40 mg Ketorolac Tromethamine (Toradol) 30 mg IVPUSH ONETIME ONE Stop: 04/03/19 21:05 Last Admin: 04/03/19 21:15 Dose: 30 mg Lidocaine (Lidoderm 5%) 700 mg TOP DAILY [facility] Last Admin: 04/04/19 10:03 Dose: Not Given - Exam Quality Assessment: Reports: DVT Prophylaxis. Denies: Supplemental Oxygen, Central Line/PICC, Urine Catheter, Skin Breakdown, Restraints General: Reports: Alert, Oriented, Cooperative, No Acute Distress HEENT: Reports: Pupils Equal, Pupils Reactive, EOMI, Mucous Membr. Moist/[place]ck: Reports: Supple, Trachea Midline, No JVD, No Thyromegaly, +2 Carotid Pulse wo Bruit. Denies: Lymphadenopathy Lungs: Reports: Clear to Auscultation, Normal Respiratory Effort. Denies: Rub Cardiovascular: Reports: Regular Rate, Regular Rhythm, No Murmurs. Denies: Gallops, Rubs GI/Abdominal Exam: Normal Bowel Sounds, Soft, Non-Tender, No Organomegaly, No Distention, No Abnormal Bruit, No Mass, Other (Obese). No: Guarding (Female) Exam: Deferred Rectal (Female) Exam: Deferred Back Exam: Reports: Normal Inspection, Full Range of Motion. Denies: CVA Tenderness (L), CVA Tenderness (R), Muscle Spasm Extremities: Pedal Edema (Stable +1 bilateral pedal/pretibial edema), Arm Pain ( Right shoulder as above), Limited Range of Motion (Right shoulder secondary to pain). No: Non-Tender (Moderate discomfort with range of motion and palpation in right shoulder), Joint Swelling, Ngozi's Sign Skin: Reports: Warm, Dry, Intact. Denies: Ecchymosis Neurological: Reports: No New Focal Deficit Psy/Mental Status: Reports: Alert, Anxious (Mild), Depressed (Mild). Denies: Agitated, Hallucinations, Withdrawal Symptoms EKG INTERPRETATION EKG Date: 04/05/19 Time: 08:05 Rhythm: NSR Rate (Beats/Min): 68 [place]: Normal (Left cardiac axis) P-Wave: Enlarged (Moderate diffuse biphasic P waves with poor R-wave progression in the anterior leads) QRS: RBBB (0.10 seconds representing repolarization changes versus borderline incomplete right bundle branch block) ST-T: Other (Improved T-wave inversion in leads 3 and V3 with resolution of previous T-wave inversions in leads aVF and V4 through V6. Stable T-wave inversion in lead V1) QT: Normal DC/PQ Interval: 0.16 seconds Comparison: Change From Previous EKG (As above since 04/04/19) EKG Interpretation Comments: 1. Improved inferolateral cardiac ischemia 2. Atrial enlargement-left 3. Incomplete right bundle branch block
== END 2019-04-05 10:17 | disposition home or self-care (01) ==
LOC: LL.ED 19:27 → LL.MS 21:10 → UNDOADMOB 21:10 → LL.MS 21:39
PROVIDERS: ADMIT Family Medicine; ATTEND Family Medicine
DX: R55 Syncope and collapse (principal); I45.10 Unspecified right bundle-branch block; G43.009 Migraine without aura, not intractable, without status migrainosus; J45.909 Unspecified asthma, uncomplicated; M15.0 Primary generalized (osteo)arthritis; K21.9 Gastro-esophageal reflux disease without esophagitis; F41.8 Other specified anxiety disorders; D64.9 Anemia, unspecified; E66.9 Obesity, unspecified; Z91.048 Other nonmedicinal substance allergy status; Z79.51 Long term (current) use of inhaled steroids; Z79.899 Other long term (current) drug therapy
CPT/HCPCS: 36415; 70450; 71045; 80048; 80053; 80061; 80305-QW; 81001; 82550; 82553; 83036; 83605; 83735; 83880; 84146; 84443; 84484; 84550; 85025; 85379; 85610; 85730; 87086; 93005; 96374; 96375; 96376; 99285-25; A9270-GY; G0378; G0480; J1885; J1940; J3360; J3490